=== PATIENT | male | born 1950 | race Caucasian/White ===

== ENCOUNTER → 2017-01-16 | Outpatient (CLI) | payer OTHER ==
[~2017-01-16] MED LIST: AMLO-110 PO; ASPI81TA28 PO; AZIT500T26 PO; BIOFTAB30 PO; BUSP1TAB46 PO; MECL1TAB42 PO; METH5TAB63 PO; RANI300T2 PO
[2017-01-16 12:17] LABS: BASO % 0.3 %; BASO ABS # 0.02 K/uL (0-0.2); COMPLETE YES; EOS % 1.9 %; HEMATOCRIT 46.4 % (42-52); IG% 0.2 %; LYMPH % 39.2 %; LYMPH ABS # 2.28 K/uL (1.2-3.4); MEAN CELL VOLUME 96.5 fL (80-100); MEAN CORPUSCULAR HEMOGLOBIN 32.8 pg (25-34); MEAN CORPUSCULAR HGB CONC 34.1 g/dl (32-36); MEAN PLATELET VOLUME 10.1 fL (7.4-10.4); MONO % 8.6 %; NEUT % 49.8 %; PLATELET COUNT 330 K/uL (130-400); RED BLOOD COUNT 4.81 M/uL (4.7-6.1); WHITE BLOOD COUNT 5.81 K/uL (4.8-10.8)
[2017-01-16 12:36] LABS: ALT/SGPT 23 U/L (12-78); AST/SGOT 19 U/L (15-37); BLOOD UREA NITROGEN 13 mg/dl (7-18); BUN/CREATININE RATIO 11.1 (10-20); CARBON DIOXIDE 26 mmol/L (21-32); CHLORIDE 108 mmol/L (98-107); CHOLESTEROL 210 mg/dl (0-200); GLUCOSE 100 mg/dl (70-99); POTASSIUM 4.6 mmol/L (3.5-5.1); SODIUM 141 mmol/L (136-145); TRIGLYCERIDES 116 mg/dl (0-150); VERY LOW DENSITY LIPOPROT CALC 23 mg/dl
[2017-01-16 12:38] LABS: CALCIUM 8.9 mg/dl (8.5-10.1)
[2017-01-16 12:47] LABS: ALKALINE PHOSPHATASE 85 U/L (45-117); CHOLESTEROL/HDL RATIO 4.5; HDL CHOLESTEROL 47 mg/dl; LDL CHOLESTEROL CALCULATED 140 mg/dl
== END | disposition home or self-care (01) ==
LOC: C.LABBFT 08:03
PROVIDERS: ATTEND Internal Medicine
DX: Z11.59 Encounter for screening for other viral diseases (principal); E05.90 Thyrotoxicosis, unspecified without thyrotoxic crisis or storm; E78.5 Hyperlipidemia, unspecified; I10 Essential (primary) hypertension

== ENCOUNTER 2017-06-22 23:27 | Emergency (ER) | payer OTHER ==
[~2017-06-22] VITALS: Ht 170.2 cm; Wt 85.4 kg
[~2017-06-22 23:27] MED LIST changes: -AMLO-110 PO; -AZIT500T26 PO; -MECL1TAB42 PO
[2017-06-22 23:32] VITALS: TEMP 36.6; Ht 170.2 cm; Wt 85.4 kg
[2017-06-22 23:48] VITALS: O2SAT 97
--- NOTE | 2017-06-22 23:54 | EMERGENCY ROOM VISIT NOTE ---
History Report prepared by Jessi: Chandrakant Ascencio Under the Supervision of: Dr. Kimmy Gann D.O. First contact with patient: 23:35 Chief Complaint: CHEST PAIN Stated Complaint: CHEST PAIN,NOT FEELING WELL Nursing Triage Summary: pt reports cp started at 2230 in L chest feels sob and nauseated History of Present Illness The patient is a 66 year old male who presents to the Emergency Room with complaints of mild chest pain that occurred this evening. Currently, his pain has resolved. Although this pain occurred this evening, he states that it is not a new experience. He has been having small mild episodes of this same pain for about 3 weeks. He has been battling a cough with post nasal drip for the past four weeks. After trying cold medicine and Mucinex, he notes that the mucous became harder to cough up. While he was sitting down watching TV this evening, he started to feel "weird" and began to have this mild chest pain. He then began to shake with chills as well. His chest pain went away after about 30 seconds. He went to bed but could not stop shaking. He was going to go to his PCP for his cold symptoms, but the shakiness concerned him, so he presented to the ER. He has a past medical history hypertension, GERD, and thyroid disease. He denies any abdominal pain, melena, hematochezia, diarrhea, or abnormal urinary symptoms. He notes that he is following up with Cardiology, but everything that was done has been negative. He smokes 9 cigarettes everyday. Source of History: patient Onset: this evening Position: chest Symptom Intensity: minimal Quality: ache Timing: resolved Associated Symptoms: + cough, No abdominal pain, No melena, No hematochezia , No diarrhea, No urinary symptoms Note: He was experiencing shakiness. Review of Systems See HPI for pertinent positives & negatives. A total of 10 systems reviewed and were otherwise negative. Past Medical & Surgical Medical Problems: (1) Benign hypertension (2) Gastroesophageal reflux disease (3) Herniated disc (4) Hypothyroidism (5) Vertigo Family History Cancer Diabetes mellitus Gallbladder disease Heart disease Hypertension Social History Smoking Status: Current Every Day Smoker Alcohol Use: occasionally Marital Status: Housing Status: lives with family Occupation Status: employed Current/Historical Medications Scheduled Amlodipine (Norvasc), 5 MG PO DAILY Aspirin (Aspirin Ec), 81 MG PO DAILY Azithromycin (Zithromax), 500 MG PO DAILY Methimazole (Tapazole), 5 MG PO DAILY Ranitidine (Zantac), 300 MG PO BID Scheduled PRN Buspirone Hcl (Buspirone Hcl), 7.5 MCG PO BID PRN for Anxiety Meclizine Hcl (Meclizine Hcl), 25 MG PO TID PRN for Dizziness or Vertigo Allergies Coded Allergies: RANDALL Inhibitors (Verified Allergy, Intermediate, ANGIOEDEMA, 06/23/17) Ezetimibe (Verified Adverse Reaction, Unknown, intolerance, 05/29/15) HMG-CoA-R Inhibitors (Verified Adverse Reaction, Unknown, intolerance, ) Physical Exam Vital Signs Date Time Temp Pulse Resp B/P (MAP) Pulse Ox O2 Delivery O2 Flow Rate FiO2 06/23/17 04:07 74 16 147/95 93 Room Air 06/23/17 02:36 70 16 127/85 95 Room Air 06/23/17 00:59 77 15 137/75 93 Room Air 06/22/17 23:59 85 06/22/17 23:48 97 Room Air 06/22/17 23:42 94 Room Air 06/22/17 23:32 36.6 92 20 178/104 96 Room Air Physical Exam HEENT: Head - normocephalic and atraumatic Pupils are equal, round, and reactive to light. Extraocular eye muscles are intact, and sclera are anicteric. Nose - moist nasal mucosa without discharge. Mouth - moist buccal mucosa. Oropharynx is nonerythematous and there is no tonsillar exudate or edema noted. Neck: Supple; no JVD, nuchal rigidity, cervical lymphadenopathy, or auscultated bruits. Heart: Regular rate and rhythm. There is a normal S1 and S2 with no murmurs, clicks, or gallops appreciated. Lungs: Diminished lungs sounds in all mckeon. No wheezing or rales appreciated. Abdomen: Soft, completely nontender, nondistended, with good bowel sounds. There are no palpable pulsatile masses or hepatosplenomegaly. There is no guarding, rigidity, or rebound noted. Extremities: No evidence of cyanosis, clubbing, or edema. There are easily palpable peripheral pulses. Skin: warm and dry with good turgor and no rashes. Medical Decision & Procedures ER Provider Diagnostic Interpretation: Radiology results as stated below per my review and the radiologist's interpretation: CHEST X-RAY 1 VIEW: Normal mediastinum. No pulmonary pathology. Per me Laboratory Results 06/22/17 23:45 Red Blood Count 4.77, Mean Corpuscular Volume 93.5, Mean Corpuscular Hemoglobin 32.9, Mean Corpuscular Hemoglobin Concent 35.2, Mean Platelet Volume 9.6, Neutrophils (%) (Auto) 51.0, Lymphocytes (%) (Auto) 38.1, Monocytes (%) (Auto) 7.4, Eosinophils (%) (Auto) 2.8, Basophils (%) (Auto) 0.3, Neutrophils # (Auto) 3.96, Lymphocytes # (Auto) 2.95, Monocytes # (Auto) 0.57, Eosinophils # (Auto) 0.22, Basophils # (Auto) 0.02 06/22/17 23:45 Test 06/22/17 23:45 06/22/17 23:53 06/23/17 01:05 06/23/17 03:46 White Blood Count 7.75 K/uL (4.8-10.8) Red Blood Count 4.77 M/uL (4.7-6.1) Hemoglobin 15.7 g/dL (14.0-18.0) Hematocrit 44.6 % (42-52) Mean Corpuscular Volume 93.5 fL (80-100) Mean Corpuscular Hemoglobin 32.9 pg (25-34) Mean Corpuscular Hemoglobin Concent 35.2 g/dl (32-36) Platelet Count 320 K/uL (130-400) Mean Platelet Volume 9.6 fL (7.4-10.4) Neutrophils (%) (Auto) 51.0 % Lymphocytes (%) (Auto) 38.1 % Monocytes (%) (Auto) 7.4 % Eosinophils (%) (Auto) 2.8 % Basophils (%) (Auto) 0.3 % Neutrophils # (Auto) 3.96 K/uL (1.4-6.5) Lymphocytes # (Auto) 2.95 K/uL (1.2-3.4) Monocytes # (Auto) 0.57 K/uL (0.11-0.59) Eosinophils # (Auto) 0.22 K/uL (0-0.5) Basophils # (Auto) 0.02 K/uL (0-0.2) RDW Standard Deviation 45.4 fL (36.4-46.3) RDW Coefficient of Variation 13.2 % (11.5-14.5) Immature Granulocyte % (Auto) 0.4 % Immature Granulocyte # (Auto) 0.03 K/uL (0.00-0.02) Prothrombin Time 10.0 SECONDS (9.0-12.0) Prothromb Time International Ratio 0.9 (0.9-1.1) Activated Partial Thromboplast Time 26.3 SECONDS (21.0-31.0) Partial Thromboplastin Ratio 1.0 Anion Gap 7.0 mmol/L (3-11) Est Creatinine Clear Calc Drug Dose 67.5 ml/min Estimated GFR () 77.8 Estimated GFR (Non- 67.1 BUN/Creatinine Ratio 12.1 (10-20) Calcium Level 8.3 mg/dl (8.5-10.1) Total Bilirubin 0.2 mg/dl (0.2-1) Aspartate Amino Transf (AST/SGOT) 17 U/L (15-37) Alanine Aminotransferase (ALT/SGPT) 28 U/L (12-78) Alkaline Phosphatase 93 U/L (45-117) Total Protein 7.6 gm/dl (6.4-8.2) Albumin 3.5 gm/dl (3.4-5.0) Globulin 4.1 gm/dl (2.5-4.0) Albumin/Globulin Ratio 0.9 (0.9-2) Chemistry Specimen Hemolysis Bedside Lactic Acid Venous 1.63 mmol/L (0.90-1.70) Urine Color YELLOW Urine Appearance CLEAR (CLEAR) Urine pH 5.5 (4.5-7.5) Urine Specific [place] 1.012 (1.000-1.030) Urine Protein NEG (NEG) Urine Glucose (UA) NEG (NEG) Urine Ketones NEG (NEG) Urine Occult Blood NEG (NEG) Urine Nitrite NEG (NEG) Urine Bilirubin NEG (NEG) Urine Urobilinogen NEG (NEG) Urine Leukocyte Esterase NEG (NEG) Urine WBC (Auto) 0 /hpf (0-5) Urine RBC (Auto) 0-4 /hpf (0-4) Urine Hyaline Casts (Auto) 0 /lpf (0-5) Urine Epithelial Cells (Auto) 0-5 /lpf (0-5) Urine Bacteria (Auto) NEG (NEG) Bedside Troponin I < 0.030 ng/ml (0-0.045) Laboratory results per my review. Medications Administered Medications (Trade) Dose Ordered Sig/Lyudmila Route Start Time Stop Time Status Last Admin Dose Admin Azithromycin (Zithromax Tab) 500 mg NOW STAT PO 06/23/17 03:43 06/23/17 03:44 DC 06/23/17 04:06 500 MG Procedure Azithromycin 500 mg PO ECG Indication: chest pain Rate (beats per minute): 83 Rhythm: normal sinus Findings: no acute ischemic change, no ectopy ED Course 2335: Past medical records reviewed. The patient was evaluated in room A3. A complete history and physical exam was performed. A septic protocol was performed as the patient describes some shaking and I thought this may be related to chills. The patient had a twelve-lead EKG and chest x-ray as described above. 0240: The patient's blood pressure has normalized. 0336: I reassessed the patient at this time. I will be getting a POC troponin. He notes that he is feeling well. 0343: Ordered Azithromycin 500 mg PO 0400: The patient's troponin is 0.0. I reassessed him at this time and updated him on his results. He will be discharged home. 0415: Upon reevaluation, the patient is resting. I discussed findings and results with him. He verbalized agreement of the treatment plan. He was discharged home. Medical Decision The patient is a 66 year old male who presents to the ED with resolved chest pain and shaking. Differential diagnosis includes sepsis, pneumonia, acute coronary syndrome, STEMI, and bronchitis. Laboratory Results: Normal White Blood Cell count, normal H&H, lactic 1.6, glucose 166, normal renal function, normal LFTs, normal coagulation studies, normal urine. The patient describes having some upper respiratory symptoms, cough and intermittent episodes of chest pain over the past 3 weeks. He became more concerned tonight because he developed some shaking. By his description of his symptoms, I was concerned about the productive cough and the possibility of shaking chills. A septic protocol was performed. The patient was afebrile and had a normal lactic acid. He had no significant leukocytosis. We spent some time talking about his episodes of chest pain. He states that they'll last for a couple of seconds and then resolved. He has had a significant workup by his PCP in the past for episodes of dizziness that included a cardiac stress test and echo. The patient is a smoker and does have a productive cough at this time. I will start the patient on oral antibiotics as the cough has been worsening over the past 3 weeks. I've asked patient to follow up with his PCP with regards to the episodes of chest pain if they persist. If symptoms worsen, he should return here to the ER. Medication Reconcilliation Current Medication List: was personally reviewed by me Blood Pressure Screening Patient's blood pressure: Normal blood pressure Blood pressure disposition: Did not require urgent referral Impression Primary Impression: Cough Additional Impression: Midsternal chest pain Scribe Attestation The scribe's documentation has been prepared under my direction and personally reviewed by me in its entirety. I confirm that the note above accurately reflects all work, treatment, procedures, and medical decision making performed by me. Departure Information Dispostion Home / Self-Care Prescriptions Azithromycin (Zithromax) 500 Mg Tab 500 MG PO DAILY, #4 TAB Prov: Kimmy Gann D.O. 06/23/17 Referrals Gerardo Zhou M.D. (PCP) Forms Call Back Authorization, HOME CARE DOCUMENTATION FORM, IMPORTANT VISIT INFORMATION Patient Instructions Bronchitis Acute, ED Chest Pain Atypical Unkn Cause, My [facility] Additional Instructions Rest. Limit strenuous activity Take zithromax as directed. follow up with PCP if episodes of chest pain continue. Return here if cheat pain happens and doesn't subside Problem Qualifiers
[2017-06-23 00:01] LABS: BASO % 0.3 %; BASO ABS # 0.02 K/uL (0-0.2); COMPLETE YES; EOS % 2.8 %; HEMATOCRIT 44.6 % (42-52); IG% 0.4 %; LYMPH % 38.1 %; LYMPH ABS # 2.95 K/uL (1.2-3.4); MEAN CELL VOLUME 93.5 fL (80-100); MEAN CORPUSCULAR HEMOGLOBIN 32.9 pg (25-34); MEAN CORPUSCULAR HGB CONC 35.2 g/dl (32-36); MEAN PLATELET VOLUME 9.6 fL (7.4-10.4); MONO % 7.4 %; PLATELET COUNT 320 K/uL (130-400); RED BLOOD COUNT 4.77 M/uL (4.7-6.1); WHITE BLOOD COUNT 7.75 K/uL (4.8-10.8)
[2017-06-23 00:16] LABS: INR 0.9 (0.9-1.1)
[2017-06-23 00:24] LABS: ALB/GLOB RATIO 0.9 (0.9-2); BUN/CREATININE RATIO 12.1 (10-20); CALCIUM 8.3 mg/dl (8.5-10.1); CREATININE 1.14 mg/dl (0.60-1.40); POTASSIUM 3.8 mmol/L (3.5-5.1)
[2017-06-23] MEDS ORDERED: AMLO-110 PO (00:59)
[2017-06-23] MEDS ORDERED: MECL1TAB42 PO (01:01)
[2017-06-23 01:21] LABS: URINE APPEARANCE CLEAR (CLEAR); URINE BILIRUBIN NEG (NEG); URINE COLOR YELLOW; URINE EPITHELIAL CELL AUTO 0-5 /lpf (0-5); URINE NITRITE NEG (NEG); URINE PH 5.5 (4.5-7.5); URINE SPECIFIC GRAVITY 1.012 (1.000-1.030); UROBILINOGEN NEG (NEG); ZZUR CULT IF INDIC CLEAN CATCH NO
[2017-06-23 01:23] LABS: MANUAL MICROSCOPIC REQUIRED? NO; REVIEW REQ? NO
[2017-06-23] MEDS ORDERED: AZITHROMYCIN 250 MG TAB PO STA (03:43)
[2017-06-23 04:07] VITALS: BP 147/95; PULSE 74; O2SAT 93
[2017-06-23] MEDS ORDERED: AZIT500T26 PO (04:09)
--- NOTE | 2017-06-23 06:05 | DIAGNOSTIC IMAGING REPORT ---
CHEST 2 VIEWS ROUTINE CLINICAL HISTORY: 67 years-old Male presenting with cough. TECHNIQUE: PA and lateral views of the chest were obtained. COMPARISON: 05/29/2015. FINDINGS: Cardiomediastinal silhouette normal. Lungs and pleural spaces clear. Osteopenia may be present. Osseous structures otherwise normal. Upper abdomen normal. IMPRESSION: 1. No acute cardiopulmonary disease. Electronically signed by: Good Avila M.D. 06/23/2017 6:03 AM Dictated Date/Time: 06/23/2017 6:02 AM
== END 2017-06-23 04:16 | disposition home or self-care (01) ==
LOC: C.EDB 23:28 → C.EDA 06-23 04:16
DX: R07.2 Precordial pain (principal); R05 Cough; I10 Essential (primary) hypertension; K21.9 Gastro-esophageal reflux disease without esophagitis; E03.9 Hypothyroidism, unspecified; F17.200 Nicotine dependence, unspecified, uncomplicated; Z79.82 Long term (current) use of aspirin; Z79.899 Other long term (current) drug therapy; Z80.9 Family history of malignant neoplasm, unspecified; Z83.3 Family history of diabetes mellitus; Z83.79 Family history of other diseases of the digestive system; Z82.49 Family history of ischemic heart disease and other diseases of the circulatory system; Z88.8 Allergy status to other drugs, medicaments and biological substances

== ENCOUNTER → 2017-06-28 | Outpatient (CLI) | payer OTHER ==
[~2017-06-28] MED LIST changes: +AMLO-110 PO; +AZIT500T26 PO; -BIOFTAB30 PO; +MECL1TAB42 PO
[2017-06-28 13:32] LABS: LYME DISEASE AB IGG NEG (NEG); LYME DISEASE AB IGM NEG (NEG)
== END | disposition home or self-care (01) ==
LOC: C.LABBFT 10:32
PROVIDERS: ATTEND Nurse Practitioner
DX: E05.90 Thyrotoxicosis, unspecified without thyrotoxic crisis or storm (principal); R53.81 Other malaise

== ENCOUNTER → 2017-07-24 | Outpatient (CLI) | payer OTHER ==
[2017-07-24 12:18] LABS: BASO % 0.3 %; BASO ABS # 0.02 K/uL (0-0.2); COMPLETE YES; EOS % 1.7 %; HEMATOCRIT 47.5 % (42-52); IG% 0.2 %; LYMPH % 37.7 %; MEAN CELL VOLUME 97.1 fL (80-100); MEAN CORPUSCULAR HEMOGLOBIN 32.9 pg (25-34); MEAN CORPUSCULAR HGB CONC 33.9 g/dl (32-36); MEAN PLATELET VOLUME 10.1 fL (7.4-10.4); MONO % 8.5 %; NEUT % 51.6 %; PLATELET COUNT 366 K/uL (130-400); RED BLOOD COUNT 4.89 M/uL (4.7-6.1); WHITE BLOOD COUNT 6.36 K/uL (4.8-10.8)
[2017-07-24 12:22] LABS: ESTIMATED AVERAGE GLUCOSE 123 mg/dl; HA1C FLAG Normal (Normal)
[2017-07-24 12:30] LABS: ALB/GLOB RATIO 0.8 (0.9-2); ALT/SGPT 22 U/L (12-78); AST/SGOT 15 U/L (15-37); BLOOD UREA NITROGEN 13 mg/dl (7-18); BUN/CREATININE RATIO 12.6 (10-20); CARBON DIOXIDE 26 mmol/L (21-32); CHLORIDE 105 mmol/L (98-107); CREATININE 1.05 mg/dl (0.60-1.40); GLUCOSE 97 mg/dl (70-99); POTASSIUM 4.4 mmol/L (3.5-5.1); SODIUM 136 mmol/L (136-145)
[2017-07-24 12:35] LABS: ALKALINE PHOSPHATASE 87 U/L (45-117); CHOLESTEROL 194 mg/dl (0-200); HDL CHOLESTEROL 49 mg/dl; LDL CHOLESTEROL CALCULATED 109 mg/dl; TRIGLYCERIDES 179 mg/dl (0-150); VERY LOW DENSITY LIPOPROT CALC 36 mg/dl
== END | disposition home or self-care (01) ==
LOC: C.LABBFT 08:07
PROVIDERS: ATTEND Internal Medicine
DX: Z12.5 Encounter for screening for malignant neoplasm of prostate (principal); R73.01 Impaired fasting glucose; I10 Essential (primary) hypertension

== ENCOUNTER → 2017-08-15 | Outpatient (CLI) | payer OTHER ==
[~2017-08-15] MED LIST changes: -AMLO-110 PO; +AMLO5TAB3 PO; +ATV5X PO; +AZITTAB PO; +BSP/10 PO; +LORA0.5T12 PO; +METH-848 PO; +NRV/5 PO; +PRED50TA PO; +RANI300T PO; +VBRT100 PO
--- NOTE | 2017-08-15 07:25 | DIAGNOSTIC IMAGING REPORT ---
ULTRASOUND EXAM AAA SCREEN CLINICAL HISTORY: F17.200 Current every day smoker, aneurysm screening COMPARISON STUDY: No previous studies for comparison. FINDINGS: There is no evidence of abdominal aortic aneurysm. The proximal abdominal aorta measures 2.8 cm in diameter, the mid aorta 2 cm in diameter, the distal aorta 2 cm in diameter. Each iliac measures 1 cm in diameter. IMPRESSION: No evidence of abdominal aortic aneurysm. Electronically signed by: Christo Haynes M.D. 08/15/2017 7:23 AM Dictated Date/Time: 08/15/2017 7:22 AM
== END | disposition home or self-care (01) ==
LOC: C.ULTR 06:42
PROVIDERS: ATTEND Internal Medicine
DX: F17.200 Nicotine dependence, unspecified, uncomplicated (principal)

== ENCOUNTER 2017-09-07 17:29 | Emergency (ER) | payer OTHER ==
[~2017-09-07] VITALS: Ht 170.2 cm; Wt 85.0 kg
[~2017-09-07 17:29] MED LIST changes: +AMLO-110 PO; -AMLO5TAB3 PO; -ATV5X PO; -AZITTAB PO; -BSP/10 PO; -LORA0.5T12 PO; -METH-848 PO; -NRV/5 PO; -PRED50TA PO; -RANI300T PO; -VBRT100 PO
[2017-09-07 17:36] VITALS: TEMP 36.5; Ht 170.2 cm; Wt 85.0 kg
[2017-09-07] MEDS ORDERED: ASPIRIN 81 MG CHEW PO STA (18:57)
--- NOTE | 2017-09-07 19:11 | EMERGENCY ROOM VISIT NOTE ---
History Report prepared by Jessi: Emeli Thompson Under the Supervision of: Dr. Errol Geller M.D. First contact with patient: 18:45 Chief Complaint: CHEST PAIN Stated Complaint: CHEST PAIN, NECK PAIN, BACK PAIN Nursing Triage Summary: Patient had a fever, chills aches and was seen by PCP did a flu swab and it was negative. Started with chest pain today pain radiates to neck and shoulder. History of Present Illness The patient is a 67 year old male who presents to the Emergency Room with complaints of an constant chest heaviness which radiated into his neck beginning this afternoon. He denies any shortness of breath, nausea, vomiting, diarrhea, blood in his stool, or blood in his urine. The patient denies any syncope. The patient was seen by his PCP this afternoon for increased fatigues beginning 5 days ago. At his PCPs office he has a flu swab which was negative. He was put on doxycycline, 100 mg, and reports taking one dose this afternoon. The patient denies any recent travel, surgeries, exogenous hormone usage, history of thromboembolic events, or trauma. The patient has a history of hypertension and GERD Source of History: patient Onset: this afternoon Position: chest Quality: other (radiates to neck) Timing: constant Associated Symptoms: + neck pain, + chest pain, No SOB, No nausea, No vomiting, No diarrhea, No urinary symptoms Review of Systems See HPI for pertinent positives and negatives. A total of ten systems were reviewed and were otherwise negative. Past Medical & Surgical Medical Problems: (1) Benign hypertension (2) Gastroesophageal reflux disease (3) Herniated disc (4) Hypothyroidism (5) Vertigo Family History Cancer Diabetes mellitus Gallbladder disease Heart disease Hypertension Social History Smoking Status: Never Smoker Alcohol Use: occasionally Marital Status: Housing Status: lives with family Occupation Status: employed Current/Historical Medications Scheduled Amlodipine (Norvasc), 5 MG PO DAILY Aspirin (Aspirin Ec), 81 MG PO DAILY Doxycycline Hyclate (Doxycycline Hyclate), 100 MG PO BID Methimazole (Tapazole), 5 MG PO DAILY Ranitidine (Zantac), 300 MG PO BID Scheduled PRN Buspirone Hcl (Buspirone Hcl), 7.5 MCG PO BID PRN for Anxiety Lorazepam (Lorazepam), 0.5 MG PO DAILY PRN for Anxiety Meclizine Hcl (Meclizine Hcl), 25 MG PO TID PRN for Dizziness or Vertigo Allergies Coded Allergies: RANDALL Inhibitors (Verified Allergy, Intermediate, ANGIOEDEMA, 06/23/17) Ezetimibe (Verified Adverse Reaction, Unknown, intolerance, 05/29/15) HMG-CoA-R Inhibitors (Verified Adverse Reaction, Unknown, intolerance, ) Physical Exam Vital Signs Date Time Temp Pulse Resp B/P (MAP) Pulse Ox O2 Delivery O2 Flow Rate FiO2 09/07/17 22:24 67 16 146/89 94 Room Air 09/07/17 19:47 74 09/07/17 19:39 97 Room Air 09/07/17 17:39 Room Air 09/07/17 17:36 36.5 90 16 166/89 96 Room Air Physical Exam Physical Exam GENERAL: He is oriented to person, place, and time. He appears well-developed and well-nourished. He does not appear distressed. ____ HENT: Exam performed. Head: Normocephalic and atraumatic. Right Ear: External ear normal. No mastoid tenderness. Left Ear: External ear normal. No mastoid tenderness. Mouth/Throat: The oropharynx is clear and moist. No trismus in the jaw. No dental abscesses or uvula swelling. No oropharyngeal exudate or tonsillar abscesses. ____ EYES: Conjunctivae and EOM are normal. Pupils are equal, round, and reactive to light. Right eye exhibits no discharge. Left eye exhibits no discharge. No scleral icterus. ____ NECK: Normal range of motion. Neck supple. No JVD present. No spinous process tenderness present. No carotid bruit present. No rigidity. No tracheal deviation and normal range of motion present. No Brudzinski's sign and no Kernig 's sign noted. ____ CV: Normal rate, regular rhythm, normal heart sounds and intact distal pulses. There is no peripheral edema. Palpable radial pulses bue. ____ PULM/CHEST: Effort normal and breath sounds normal. No respiratory distress. No stridor. He has no wheezes. He has no rales. Chest Wall: He exhibits no tenderness. ____ ABD: The abdomen is soft. Bowel sounds are normal. He has no distension. No mass is present. There is no tenderness. There is no rebound, no guarding, no Rudolph's sign and no tenderness at McBurney's point. Rovsig negative MUSC/SKEL: Normal range of motion. There is no peripheral edema, tenderness or deformity. LYMPH: No cervical adenopathy. ____ NEURO: He is alert and oriented to person, place, and time. He has normal strength. No cranial nerve deficit or sensory deficit. Coordination and gait normal. GCS eye subscore is 4. GCS verbal subscore is 5. GCS motor subscore is 6. cerbellar tests wnl. ____ SKIN: Skin is warm and dry. He is not diaphoretic. ____ PSYCH: He has a normal mood and affect. His behavior is normal. Judgment and thought content normal. ____ Medical Decision & Procedures ER Provider Diagnostic Interpretation: Radiology results as stated below per my review and radiologist interpretation: CHEST 2 VIEWS ROUTINE FINDINGS: The lungs are clear. Cardiac silhouette is normal in size. No pleural effusions. No pneumothorax. IMPRESSION: No acute process. Electronically signed by: Momo Jacobs M.D. Laboratory Results 09/07/17 19:07 Red Blood Count 5.03, Mean Corpuscular Volume 93.8, Mean Corpuscular Hemoglobin 33.8, Mean Corpuscular Hemoglobin Concent 36.0, Mean Platelet Volume 9.5, Neutrophils (%) (Auto) 70.1, Lymphocytes (%) (Auto) 21.5, Monocytes (%) (Auto) 7.3, Eosinophils (%) (Auto) 0.7, Basophils (%) (Auto) 0.2, Neutrophils # (Auto) 5.65, Lymphocytes # (Auto) 1.74, Monocytes # (Auto) 0.59, Eosinophils # (Auto) 0.06, Basophils # (Auto) 0.02 09/07/17 19:07 Test 09/07/17 19:07 09/07/17 22:17 White Blood Count 8.08 K/uL (4.8-10.8) Red Blood Count 5.03 M/uL (4.7-6.1) Hemoglobin 17.0 g/dL (14.0-18.0) Hematocrit 47.2 % (42-52) Mean Corpuscular Volume 93.8 fL (80-100) Mean Corpuscular Hemoglobin 33.8 pg (25-34) Mean Corpuscular Hemoglobin Concent 36.0 g/dl (32-36) Platelet Count 325 K/uL (130-400) Mean Platelet Volume 9.5 fL (7.4-10.4) Neutrophils (%) (Auto) 70.1 % Lymphocytes (%) (Auto) 21.5 % Monocytes (%) (Auto) 7.3 % Eosinophils (%) (Auto) 0.7 % Basophils (%) (Auto) 0.2 % Neutrophils # (Auto) 5.65 K/uL (1.4-6.5) Lymphocytes # (Auto) 1.74 K/uL (1.2-3.4) Monocytes # (Auto) 0.59 K/uL (0.11-0.59) Eosinophils # (Auto) 0.06 K/uL (0-0.5) Basophils # (Auto) 0.02 K/uL (0-0.2) RDW Standard Deviation 44.3 fL (36.4-46.3) RDW Coefficient of Variation 12.9 % (11.5-14.5) Immature Granulocyte % (Auto) 0.2 % Immature Granulocyte # (Auto) 0.02 K/uL (0.00-0.02) Anion Gap 5.0 mmol/L (3-11) Est Creatinine Clear Calc Drug Dose 75.0 ml/min Estimated GFR () 89.4 Estimated GFR (Non- 77.1 BUN/Creatinine Ratio 12.0 (10-20) Calcium Level 8.6 mg/dl (8.5-10.1) Troponin I 0.018 ng/ml (0-0.045) Laboratory results reviewed by me Medications Administered Medications (Trade) Dose Ordered Sig/Lyudmila Route Start Time Stop Time Status Last Admin Dose Admin Aspirin (Aspirin Chew) 324 mg NOW STAT PO 09/07/17 18:57 09/07/17 19:00 DC 09/07/17 19:06 324 MG ECG Indication: chest pain Rate (beats per minute): 82 Rhythm: sinus rhythm Findings: no acute ischemic change, no ectopy, other (CT, QRS, QTC within normal limits, No ST elevation or depression) Change: EKG interpreted by me. ED Course 601: The patient was evaluated in room C12B. A complete history and physical exam was performed. 1856: Ordered Aspirin 324 mg PO. 2119: Vital sign stable. EMR reviewed: patient had a stress echo in 2013 and an echo in 2014. He has had no cardiac workup since. The patient was given the option to come into the hospital for chest pain rule ACS. He does not want to stay in the hospital overnight. Repeat troponin if not upward trending, the patient will follow up with Dr. NavarreteCardiology. Patient is agreeable to plan. 6: Vital signs stable. Second troponin within normal limits. Patient was again offered observation for rule out ACS however he declined. Patient will be discharged follow-up with his PCP Dr. Etienne on Sunday. DISCHARGE - Plan of care discussed with patient and questions answered. The patient was given both verbal and printed discharge instructions. The patient verbalized understanding and ability to comply. The patient is to seek outpatient follow up as noted in the discharge instructions. The patient verbalized understanding and ability to comply. The patient is discharged in stable condition. The patient was instructed to return for worsening symptoms. Medical Decision 2119: Vital sign stable. EMR reviewed: patient had a stress echo in 2013 and an echo in 2014. He has had no cardiac workup since. The patient was given the option to come into the hospital for chest pain rule ACS. He does not want to stay in the hospital overnight. Repeat troponin if not upward trending, the patient will follow up with Dr. NavarreteCardiology. Patient is agreeable to plan. 6: Vital signs stable. Second troponin within normal limits. Patient was again offered observation for rule out ACS however he declined. Patient will be discharged follow-up with his PCP Dr. Etienne on Sunday. DISCHARGE - Plan of care discussed with patient and questions answered. The patient was given both verbal and printed discharge instructions. The patient verbalized understanding and ability to comply. The patient is to seek outpatient follow up as noted in the discharge instructions. The patient verbalized understanding and ability to comply. The patient is discharged in stable condition. The patient was instructed to return for worsening symptoms. Medication Reconcilliation Current Medication List: was personally reviewed by me Impression Primary Impression: CHEST PAIN, UNSPECIFIED Scribe Attestation The scribe's documentation has been prepared under my direction and personally reviewed by me in its entirety. I confirm that the note above accurately reflects all work, treatment, procedures, and medical decision making performed by me. The chart was completed utilizing [employer] Speech voice recognition software. Grammatical errors, random word insertions, pronoun errors, and incomplete sentences are an occasional consequence of this system due to software limitations, ambient noise, and hardware issues. Any formal questions or concerns about the content, text, or information contained within the body of this dictation should be directly addressed to the physician for clarification. Departure Information Referrals Gerardo Zhou M.D. (PCP) Patient Instructions My [facility]
[2017-09-07] MEDS ORDERED: VBRT100 PO (19:14)
[2017-09-07] MEDS ORDERED: LORA0.5T12 PO (19:16)
[2017-09-07 19:23] LABS: BASO % 0.2 %; BASO ABS # 0.02 K/uL (0-0.2); EOS % 0.7 %; EOS ABS # 0.06 K/uL (0-0.5); HEMATOCRIT 47.2 % (42-52); IG# 0.02 K/uL (0.00-0.02); LYMPH % 21.5 %; LYMPH ABS # 1.74 K/uL (1.2-3.4); MEAN CELL VOLUME 93.8 fL (80-100); MEAN CORPUSCULAR HEMOGLOBIN 33.8 pg (25-34); MEAN PLATELET VOLUME 9.5 fL (7.4-10.4); MONO % 7.3 %; MONO ABS # 0.59 K/uL (0.11-0.59); NEUT % 70.1 %; NEUT ABS # 5.65 K/uL (1.4-6.5); PLATELET COUNT 325 K/uL (130-400); RED CELL DISTRIBUTION WIDTH CV 12.9 % (11.5-14.5); RED CELL DISTRIBUTION WIDTH SD 44.3 fL (36.4-46.3); WHITE BLOOD COUNT 8.08 K/uL (4.8-10.8)
[2017-09-07 19:39] VITALS: O2SAT 97
[2017-09-07 19:48] LABS: CALCIUM 8.6 mg/dl (8.5-10.1); CREATININE 1.01 mg/dl (0.60-1.40); POTASSIUM 3.8 mmol/L (3.5-5.1)
--- NOTE | 2017-09-07 20:51 | DIAGNOSTIC IMAGING REPORT ---
CHEST 2 VIEWS ROUTINE HISTORY: Atypical chest pain. COMPARISON: Chest 06/23/2017. FINDINGS: The lungs are clear. Cardiac silhouette is normal in size. No pleural effusions. No pneumothorax. IMPRESSION: No acute process. Electronically signed by: Momo Jacobs M.D. 09/07/2017 8:50 PM Dictated Date/Time: 09/07/2017 8:48 PM
[2017-09-07 23:25] VITALS: BP 162/95; PULSE 78; O2SAT 94
== END 2017-09-07 23:26 | disposition home or self-care (01) ==
LOC: C.EDB 17:32 → C.EDC 23:26
DX: R07.9 Chest pain, unspecified (principal); M54.2 Cervicalgia; I10 Essential (primary) hypertension; E03.9 Hypothyroidism, unspecified; K21.9 Gastro-esophageal reflux disease without esophagitis; M54.9 Dorsalgia, unspecified

== ENCOUNTER → 2017-09-12 | Outpatient (CLI) | payer OTHER ==
[~2017-09-12] MED LIST changes: -AZIT500T26 PO; +LORA0.5T12 PO; +VBRT100 PO
== END | disposition home or self-care (01) ==
LOC: C.LABBFT 11:29
PROVIDERS: ATTEND Internal Medicine
DX: E05.90 Thyrotoxicosis, unspecified without thyrotoxic crisis or storm (principal)

== ENCOUNTER 2017-09-24 14:27 | Emergency (ER) | payer OTHER ==
[~2017-09-24] VITALS: Ht 170.2 cm; Wt 85.6 kg
[2017-09-24] MEDS ORDERED: ACETAMINOPHEN 500 MG TAB PO STA (15:11)
[2017-09-24] MEDS ORDERED: ALBUT/IPRATROP 3MG/0.5MG NEB 3 ML VIAL INH STA (15:11)
--- NOTE | 2017-09-24 15:12 | EMERGENCY ROOM VISIT NOTE ---
History Report prepared by Jessi: Chandrakant Ascencio Under the Supervision of: Dr. Kingston Ramsay M.D. First contact with patient: 14:53 Chief Complaint: COUGH Stated Complaint: COUGH,NOT FEELING WELL History of Present Illness The patient is a 67 year old white male with a past medical history of hypertension and GERD who presents to the ED with a cc of a dry cough beginning three days ago. Positive subjective hypothermic temperature of 95 F, a "scratchy " throat, and some fatigue. Negative sore throat, chest pain, shortness of breath, nausea, vomiting, or abdominal pain. He has been experiencing this cough for the past couple of days. However, he took his oral temperature today and found it to be 95 F. He then had his take hers to make sure the thermometer was working, and her temperature was normal. He called his PCP who referred him to the ER because of their office being closed today. He does smoke cigarettes, but is trying to cut back. He notes he received three different courses of antibiotics over the past month or so with the most recent being about two weeks ago. Source of History: patient Onset: three days ago Position: other (Respiratory System) Symptom Intensity: moderate Quality: other (Cough) Timing: constant Associated Symptoms: + fatigue, No sorethroat, No chest pain, No SOB, No nausea, No vomiting, No abdominal pain Note: He states that his temperature was low at 95 F. His throat is irritated but not sore. Review of Systems See HPI for pertinent positives and negatives. A total of ten systems were reviewed and were otherwise negative. Past Medical & Surgical Medical Problems: (1) Benign hypertension (2) Gastroesophageal reflux disease (3) Herniated disc (4) Hypothyroidism (5) Vertigo Family History Cancer Diabetes mellitus Gallbladder disease Heart disease Hypertension Social History Smoking Status: Current Every Day Smoker Alcohol Use: occasionally Marital Status: Housing Status: lives with family Occupation Status: retired Current/Historical Medications Scheduled Amlodipine Besylate (Amlodipine Besylate), 5 MG PO DAILY Aspirin (Aspirin Ec), 81 MG PO DAILY Azithromycin (Zithromax Z-Duane), 1 PKT PO UD Buspirone HCl (Buspirone HCl), 10 MG PO BID Methimazole (Methimazole), 5 MG PO DAILY Prednisone (Prednisone), 1 TAB PO DAILY Ranitidine Hcl (Zantac), 300 MG PO BID Scheduled PRN Lorazepam (Lorazepam), 0.5 MG PO DAILY PRN for Anxiety Allergies Coded Allergies: RANDALL Inhibitors (Verified Allergy, Intermediate, ANGIOEDEMA, 06/23/17) Ezetimibe (Verified Adverse Reaction, Unknown, intolerance, 05/29/15) HMG-CoA-R Inhibitors (Verified Adverse Reaction, Unknown, intolerance, ) Physical Exam Vital Signs Date Time Temp Pulse Resp B/P (MAP) Pulse Ox O2 Delivery O2 Flow Rate FiO2 09/24/17 17:16 87 18 124/73 95 Room Air 09/24/17 16:26 72 09/24/17 16:13 36.4 72 18 95 Room Air 09/24/17 15:37 95 Room Air 09/24/17 15:33 98 Room Air 09/24/17 14:40 36.4 83 20 166/107 95 Room Air Physical Exam GENERAL: Awake, alert, well-appearing, NAD HENT: Normocephalic, atraumatic. EYES: Normal conjunctiva. Sclera non-icteric. NECK: Supple. No nuchal rigidity. FROM. No stridor. RESPIRATORY: CTAB, no rhonchi, wheezing, crackles CARDIAC: RRR, no MRG ABDOMEN: Soft, NTND, BS+ MSK: No chest wall TTP, no LE edema NEURO: GCS 15, CN 2-12 intact, moves all 4s on command SKIN: No rash or jaundice noted. Medical Decision & Procedures ER Provider Diagnostic Interpretation: Radiology results as stated below per my review and radiologist interpretation: CHEST ONE VIEW PORTABLE CLINICAL HISTORY: 67 years-old Male presenting with EVALUATE RESPIRATORY DISTRESS.DYSPNEA. TECHNIQUE: Portable upright AP view of the chest was obtained. COMPARISON: 09/07/2017. FINDINGS: Cardiomediastinal silhouette normal. Minimal left basilar linear opacity. No other focal opacity. No large effusion or pneumothorax. Osseous structures normal. Upper abdomen normal. IMPRESSION: 1. Trace left basilar atelectasis or scarring. No convincing evidence of acute cardiopulmonary disease. Electronically signed by: Good Avila M.D. 09/24/2017 3:33 PM Dictated Date/Time: 09/24/2017 3:32 PM Laboratory Results 09/24/17 15:30 Red Blood Count 4.67, Mean Corpuscular Volume 94.2, Mean Corpuscular Hemoglobin 33.2, Mean Corpuscular Hemoglobin Concent 35.2, Mean Platelet Volume 9.4, Neutrophils (%) (Auto) 51.5, Lymphocytes (%) (Auto) 36.5, Monocytes (%) (Auto) 10.1, Eosinophils (%) (Auto) 1.2, Basophils (%) (Auto) 0.7, Neutrophils # (Auto ) 2.15, Lymphocytes # (Auto) 1.52, Monocytes # (Auto) 0.42, Eosinophils # (Auto ) 0.05, Basophils # (Auto) 0.03 09/24/17 15:30 Test 09/24/17 15:30 09/24/17 15:42 White Blood Count 4.17 K/uL (4.8-10.8) Red Blood Count 4.67 M/uL (4.7-6.1) Hemoglobin 15.5 g/dL (14.0-18.0) Hematocrit 44.0 % (42-52) Mean Corpuscular Volume 94.2 fL (80-100) Mean Corpuscular Hemoglobin 33.2 pg (25-34) Mean Corpuscular Hemoglobin Concent 35.2 g/dl (32-36) Platelet Count 275 K/uL (130-400) Mean Platelet Volume 9.4 fL (7.4-10.4) Neutrophils (%) (Auto) 51.5 % Lymphocytes (%) (Auto) 36.5 % Monocytes (%) (Auto) 10.1 % Eosinophils (%) (Auto) 1.2 % Basophils (%) (Auto) 0.7 % Neutrophils # (Auto) 2.15 K/uL (1.4-6.5) Lymphocytes # (Auto) 1.52 K/uL (1.2-3.4) Monocytes # (Auto) 0.42 K/uL (0.11-0.59) Eosinophils # (Auto) 0.05 K/uL (0-0.5) Basophils # (Auto) 0.03 K/uL (0-0.2) RDW Standard Deviation 45.3 fL (36.4-46.3) RDW Coefficient of Variation 13.1 % (11.5-14.5) Immature Granulocyte % (Auto) 0.0 % Immature Granulocyte # (Auto) 0.00 K/uL (0.00-0.02) Prothrombin Time 9.9 SECONDS (9.0-12.0) Prothromb Time International Ratio 0.9 (0.9-1.1) Activated Partial Thromboplast Time 24.7 SECONDS (21.0-31.0) Partial Thromboplastin Ratio 1.0 Anion Gap 5.0 mmol/L (3-11) Est Creatinine Clear Calc Drug Dose 69.7 ml/min Estimated GFR () 81.5 Estimated GFR (Non- 70.4 BUN/Creatinine Ratio 10.8 (10-20) Calcium Level 8.6 mg/dl (8.5-10.1) Troponin I 0.016 ng/ml (0-0.045) Pro-B-Type Natriuretic Peptide 37 pg/ml (0-900) Urine Color YELLOW Urine Appearance CLEAR (CLEAR) Urine pH 7.5 (4.5-7.5) Urine Specific [place] 1.009 (1.000-1.030) Urine Protein NEG (NEG) Urine Glucose (UA) NEG (NEG) Urine Ketones NEG (NEG) Urine Occult Blood NEG (NEG) Urine Nitrite NEG (NEG) Urine Bilirubin NEG (NEG) Urine Urobilinogen NEG (NEG) Urine Leukocyte Esterase NEG (NEG) Laboratory results reviewed by me Medications Administered Medications (Trade) Dose Ordered Sig/Lyudmila Route Start Time Stop Time Status Last Admin Dose Admin Acetaminophen (Tylenol Tab) 1,000 mg NOW STAT PO 09/24/17 15:11 09/24/17 15:14 DC 09/24/17 15:39 1,000 MG Albuterol/ Ipratropium (Duoneb) 3 ml NOW STAT INH 09/24/17 15:11 09/24/17 15:14 DC 09/24/17 15:40 3 ML Dexamethasone Sodium Phosphate (Dexamethasone Inj Pf) 10 mg NOW ONCE IV 09/24/17 15:15 09/24/17 15:16 DC 09/24/17 15:39 10 MG ECG Indication: weakness Rate (beats per minute): 71 Rhythm: normal sinus Findings: other (Normal intervals, normal axis, likely benign early repolarization, some t-wave flattening in aVL, no other STS changes or TWI) Change: Patient's electrocardiogram interpreted by me. ED Course 1453: The patient was evaluated in room C7. A complete history and physical exam was performed. 3561: Upon reevaluation, the patient is doing well. 1704: Review of the patient's past records showed that he started a course of Doxycycline on September 07 and completed it. 1725: I reevaluated the patient. Discussed results and discharge instructions: He verbalized understanding and agreement. The patient is ready for discharge. Medical Decision The patient is a 67 year old white male with a past medical history of hypertension and GERD who presents to the ED with a cc of a dry cough beginning three days ago. Positive subjective hypothermic temperature of 95 F, a "scratchy " throat, and fatigue. Negative sore throat, chest pain, shortness of breath, nausea, vomiting, or abdominal pain. Differential diagnosis: Etiologies such as infections, reactive airway disease, pneumonia, pneumothorax , COPD, CHF, cardiac ischemia, pulmonary embolism, musculoskeletal, gastrointestinal, as well as others were entertained. Patient was seen and evaluated at the bedside. Patient has had some persistent cough and ongoing for some time although acutely worse over the last several days. Patient notes a decreased oral temperature home and called his PCP and was referred here. She will exam will sounds as if he has a group sounding cough. Patient was given dexamethasone did have blood work completed along with an EKG and troponin. Patient's blood work was fairly unremarkable patient had a clear chest x-ray. Patient is a noted smoker patient states he has switched of the pain however we did discuss that he needs to cut back and eventually quit. Patient is feeling improved after his treatments. Patient was given recommendations as well as TIPS for smoking cessation. Patient records were obtained from his most previous to clinic a he was placed on doxycycline. We'll try azithromycin for atypical coverage for chronic bronchitis. Patient was deemed suitable for outpatient follow-up and treatment at this time. Patient was given strict follow-up, discharge, and return precautions. All questions were answered. Patient was deemed suitable for outpatient follow-up at this time. Patient agreed with the plan of care and was safely discharged home. Medication Reconcilliation Current Medication List: was personally reviewed by me Blood Pressure Screening Patient's blood pressure: Elevated blood pressure Blood pressure disposition: Elevated BP felt to be situational Impression Primary Impression: Cough Additional Impressions: Chronic bronchitis Encounter for smoking cessation counseling Scribe Attestation The scribe's documentation has been prepared under my direction and personally reviewed by me in its entirety. I confirm that the note above accurately reflects all work, treatment, procedures, and medical decision making performed by me. Departure Information Dispostion Home / Self-Care Prescriptions Prednisone (Prednisone) 50 Mg Tab 1 TAB PO DAILY for 3 Days, #3 TAB Please take first dose on 09/26. Take with food, preferably in the morning. Prov: Kingston Ramsay M.D. 09/24/17 Azithromycin (ZITHROMAX Z-DUANE) 250 Mg Tab 1 PKT PO UD for 5 Days, #6 TAB Prov: Kingston Ramsay M.D. 09/24/17 Referrals Gerardo Zhou M.D. (PCP) Forms HOME CARE DOCUMENTATION FORM, IMPORTANT VISIT INFORMATION Patient Instructions Bronchitis Chronic, ED Smoking Cessation, [facility] Additional Instructions Please return to the emergency department if you have worsening or recurrent symptoms not amenable to at-home treatment. Please call for a follow-up appointment with her primary care physician. Please take your medications as prescribed. If you have other concerns and/or complaints please feel free to also call your primary care physician's office or return the ED for further evaluation, management, and treatment. You may take 600 mg Ibuprofen every 6 hours as needed for pain with food for no more than 2 consecutive days. You may take tylenol 1000 mg every 6 hours as needed for pain. You may take motrin and tylenol separately or at the same time. Please take your steroids in the morning and preferably with food. Do not take your first dose of the steroid until September 26. Please consider smoking cessation. Take your medications as prescribed. If taking an antibiotic consider taking a probiotic and/or eating yogurt, but at the least, please take with food as it can cause upset stomach. If culture results are not available at discharge, if they are positive for concern of infection, you will be informed of the results as soon as they are available. If you were seen between 11pm and 7AM all radiology reads will be re-read by our in house staff. If any major discrepancies are discovered, you will be notified. You have been examined and treated today on an emergency basis only. This is not a substitute for, or an effort to provide, complete comprehensive medical care. It is impossible to recognize and treat all injuries or illnesses in a single emergency department visit. It is therefore important that you follow up closely with [facility], your PCP, and/or your specialist(s). Call as soon as possible for an appointment. Thank you for your time and consideration. I look forward to speaking with you again soon. Please don't hesitate to call us if you have any questions. Problem Qualifiers Additional Impressions: Chronic bronchitis Chronic bronchitis type: simple Qualified Codes: J41.0 - Simple chronic bronchitis
[2017-09-24] MEDS ORDERED: DEXAMETHASONE **PF** INJ 10 MG/ML VIAL IV ONE (15:15)
[2017-09-24 15:33] VITALS: O2SAT 98; Ht 170.2 cm; Wt 85.6 kg
--- NOTE | 2017-09-24 15:34 | DIAGNOSTIC IMAGING REPORT ---
CHEST ONE VIEW PORTABLE CLINICAL HISTORY: 67 years-old Male presenting with EVALUATE RESPIRATORY DISTRESS.DYSPNEA. TECHNIQUE: Portable upright AP view of the chest was obtained. COMPARISON: 09/07/2017. FINDINGS: Cardiomediastinal silhouette normal. Minimal left basilar linear opacity. No other focal opacity. No large effusion or pneumothorax. Osseous structures normal. Upper abdomen normal. IMPRESSION: 1. Trace left basilar atelectasis or scarring. No convincing evidence of acute cardiopulmonary disease. Electronically signed by: Good Avila M.D. 09/24/2017 3:33 PM Dictated Date/Time: 09/24/2017 3:32 PM
[2017-09-24 15:44] LABS: BASO % 0.7 %; BASO ABS # 0.03 K/uL (0-0.2); EOS % 1.2 %; EOS ABS # 0.05 K/uL (0-0.5); HEMOGLOBIN 15.5 g/dL (14.0-18.0); LYMPH % 36.5 %; LYMPH ABS # 1.52 K/uL (1.2-3.4); MEAN CELL VOLUME 94.2 fL (80-100); MEAN CORPUSCULAR HEMOGLOBIN 33.2 pg (25-34); MEAN CORPUSCULAR HGB CONC 35.2 g/dl (32-36); MEAN PLATELET VOLUME 9.4 fL (7.4-10.4); MONO % 10.1 %; MONO ABS # 0.42 K/uL (0.11-0.59); NEUT % 51.5 %; NEUT ABS # 2.15 K/uL (1.4-6.5); PLATELET COUNT 275 K/uL (130-400); RED CELL DISTRIBUTION WIDTH CV 13.1 % (11.5-14.5); RED CELL DISTRIBUTION WIDTH SD 45.3 fL (36.4-46.3); WHITE BLOOD COUNT 4.17 K/uL (4.8-10.8)
[2017-09-24 15:57] LABS: INR 0.9 (0.9-1.1); PTT PATIENT 24.7 SECONDS (21.0-31.0)
[2017-09-24 16:04] LABS: CALCIUM 8.6 mg/dl (8.5-10.1); CREATININE 1.09 mg/dl (0.60-1.40); POTASSIUM 4.2 mmol/L (3.5-5.1)
[2017-09-24 16:13] VITALS: TEMP 36.4
[2017-09-24] MEDS ORDERED: RANI300T PO (16:23)
[2017-09-24] MEDS ORDERED: BSP/10 PO (16:23)
[2017-09-24] MEDS ORDERED: NRV/5 PO (16:23)
[2017-09-24] MEDS ORDERED: METH-848 PO (16:23)
[2017-09-24] MEDS ORDERED: ATV5X PO (16:23)
[2017-09-24] MEDS ORDERED: PRED50TA PO (17:15)
[2017-09-24] MEDS ORDERED: AZITTAB PO (17:15)
[2017-09-24 17:16] VITALS: BP 124/73; PULSE 87; O2SAT 95
== END 2017-09-24 17:28 | disposition home or self-care (01) ==
LOC: C.EDB 14:28 → C.EDC 17:28
DX: J41.0 Simple chronic bronchitis (principal); Z71.6 Tobacco abuse counseling; F17.210 Nicotine dependence, cigarettes, uncomplicated; I10 Essential (primary) hypertension; K21.9 Gastro-esophageal reflux disease without esophagitis; E03.9 Hypothyroidism, unspecified; Z79.82 Long term (current) use of aspirin; Z88.8 Allergy status to other drugs, medicaments and biological substances; Z80.9 Family history of malignant neoplasm, unspecified; Z83.3 Family history of diabetes mellitus; Z83.79 Family history of other diseases of the digestive system; Z82.49 Family history of ischemic heart disease and other diseases of the circulatory system

== ENCOUNTER → 2017-11-12 | Outpatient (CLI) | payer OTHER ==
[~2017-11-12] MED LIST changes: -AMLO-110 PO; +ATV5X PO; +BSP/10 PO; -BUSP1TAB46 PO; -LORA0.5T12 PO; -MECL1TAB42 PO; +METH-848 PO; -METH5TAB63 PO; +NRV/5 PO; +RANI300T PO; -RANI300T2 PO; -VBRT100 PO
== END | disposition home or self-care (01) ==
LOC: C.LABBFT 15:22
PROVIDERS: ATTEND Internal Medicine
DX: R97.20 Elevated prostate specific antigen [PSA] (principal)

== ENCOUNTER 2025-03-22 19:00 | Inpatient (IN) ==
[2025-03-22 19:48] LABS: Alanine Aminotransferase 17 U/L (7-52); Albumin Globulin Ratio 1.2 (0.9-2); Alkaline Phosphatase 65 U/L (34-104); Anion Gap 6 (3-11); Bilirubin,Total 0.4 mg/dl (0.2-1.0); Blood Urea Nitrogen 14 mg/dl (6-23); Calcium 9.2 mg/dl (8.6-10.3); Carbon Dioxide 26 mmol/L (21-32); Chloride 105 mmol/L (98-107); Creatinine Clr Calc Pharmacy 58.9 ml/min; Globulin 3.6 gm/dl (2.5-4.0); Glucose 93 mg/dl (70-99(Fasting)); Magnesium 2.0 mg/dl (1.7-2.4); Sodium 137 mmol/L (136-145); Total Protein 7.9 gm/dl (6.0-8.3)
[2025-03-22 19:52] LABS: Procalcitonin < 0.02 ng/ml (0-0.5)
[2025-03-22 19:58] LABS: Hematocrit (blood only) 44.6 % (42.0-52.0); Hemoglobin 15.8 g/dl (14.0-18.0); Mean Corpuscular Hemoglobin 32.4 pg (25.0-34.0); Mean Corpuscular Volume 91.4 fL (80.0-100.0); Platelet Count 293 K/uL (130-400); RDW Standard Deviation 42.7 fL (36.4-46.3); Red Blood Count 4.88 M/uL (4.70-6.10); White Blood Count 5.88 K/ul (4.8-10.8)
[2025-03-22 20:03] LABS: Immature Granulocytes # (auto) 0.03 K/uL (0.01-0.20); Immature Granulocytes % (auto) 0.5 %
[2025-03-22 20:11] LABS: Appearance Urine Clear (Clear); Glucose Urine UA Negative (Negative)
[2025-03-22 20:12] LABS: Thyroid Stimulating Hormone 1.399 uIu/ml (0.300-4.500)
[2025-03-22 20:18] LABS: Lyme Screen Rflx Confirmation Negative (Negative)
--- NOTE | 2025-03-22 20:21 | Emergency Department Note ---
Impression & Plan Confusion, Elevated troponin ED Provider Note Provider: Chandana Welch MD CHIEF COMPLAINT: Confusion HISTORY OF PRESENT ILLNESS: Patient is a 74-year-old gentleman past medical history of hypertension presenting here today via ambulance from home. Patient evidently over the last 4 days according to patient's has been fibula more off balance and having some headache. She notes this evening around 5 PM that he seemed much more forgetful and was having trouble using the Vikas lift to help her at home. Normally he is doing this activity without issue. Normally takes care of her medications. He states he feels maybe a little confused but denies any pain. No falls are reported. Patient denies numbness or tingling or shortness of breath or fever. Denies abdominal pain. Patient does have some repetitive questioning and even after explanation was shortly thereafter asked questions again. Thinks that states fall and does not know the year or month. reports has had some on and off headache but again he denies this now. PAST MEDICAL HISTORY: As noted above MEDICATIONS: Reviewed home medications SOCIAL HISTORY: Resides at home with PHYSICAL EXAM: GENERAL: alert and oriented to person in no acute distress on stretcher but not the best historian Head: normocephalic and atraumatic EYES: No injection, discharge or icterus. PERRL, EOMI. NECK: Trachea midline. Supple. ENT: Mucous membranes pink and moist. LUNGS: Airway patent. No retractions. Breath sounds clear with out significant wheeze HEART: Regular rate and rhythm. No chest wall tenderness ABDOMEN: Soft and non-tender, without guarding or rebound. SKIN: Acyanotic, warm, dry, without rashes EXTREMITIES: Without swelling, tenderness or deformity NEUROLOGICAL: No focal deficits moving all extremities. No aphasia. No facial droop or slurred speech. Normal strength and tone in the extremities. Sensation to gross touch normal. Ambulatory. EK beats. Normal sinus rhythm. No PVC or PAC. No acute ST segment elevation or depression with QTc of 442. CONTINUOUS CARDIAC MONITORING: was ordered and showed a heart rate of 70s to 80s bpm in normal sinus rhythm Patient's laboratory studies and imaging reviewed. Differential includes Infection, dehydration, metabolic abnormality, hypo/hyperglycemia, electrolyte disturbance, anemia, hypoxia, cardiac sources, intracerebral event, toxicologic, neurologic, as well as other pathologies. IMPRESSION/MEDICAL DECISION MAKING: Patient does not appear meningitic. Vitals reassuring other than some hypertension and noted to have some mild hypoxia in the high 80s. Patient reports distant history of smoking. Does not seem wheezy on exam. No leukocytosis or anemia. No significant lecture abnormality. No signs of significant renal dysfunction. Troponin is mildly elevated 42 but no baseline. Not reporting chest pain. EKG was completed. Procalcitonin undetectably low and TSH is normal. Negative urinalysis. Negative anaplasmosis/babesiosis. Negative Lyme screen. Will complete a CT of the chest to exclude PE or pneumonia and in addition to a CT of the head CT angiogram of the head neck will be obtained to look for any possible stroke or intracranial abnormality. CT head and CTA of the chest without significant acute findings of intracranial bleed or evidence of PE. CT angiogram of the neck and head were without significant reported abnormality. Patient on the phone with his but still somewhat confabulating. Not responding to external stimuli does not seem to be hallucinating. Did review office note from November 20 with [employer] [facility] forward and patient does have a history of some depression and anxiety but no notes they are indicative of dementia or memory impairment seen. Given this change will bring in for further evaluation here. Hospitalist was contacted. Ordered a dose of aspirin here. DIAGNOSIS: Confusion, elevated troponin DISPOSITION: Hospitalist will evaluate Patient was agreeable with this plan. Past Med/Surg History Problem List (Updated 03/22/25 @ 20:48 by Chandana Welch M.D.) Elevated troponin (Acute) Confusion (Acute) Hypertension (Chronic) Hyperlipidemia Blurry vision, bilateral Amaurosis fugax of right eye Wheezing Screening for malignant neoplasm of prostate Gynecomastia GERD without esophagitis (Acute) Acid reflux Intermittent abdominal pain Hyperthyroidism (Chronic) Personal history of nicotine dependence Memory impairment Impaired fasting glucose (Chronic) Weight loss, unintentional Anxiety (Acute) Medical History Anxiety Hypertension Hyperthyroidism Vertigo (2014) Surgical History History of colonoscopy (01/07/20) History of esophagogastroduodenoscopy (EGD) (01/07/20) History of left cataract surgery History of right cataract surgery Family History Mother Pancreatic cancer Father Alzheimer disease Sister Depression Unknown Bone cancer Brother Coronary heart disease Melanoma Grandfather (Maternal) Myocardial infarction Other Family history non-contributory Denies family history of Ovarian cancer Prostate cancer Breast cancer Colorectal cancer Social History Smoking Status: Never smoker Tobacco Type: Cigarettes Age Started Using Tobacco: 14; Age Quit Using Tobacco: 68; packs per day: 1.5; Cigarettes Per Day: 10-30; Second Hand Exposure: No; Do You Dip or Chew Tobacco: No; Hx Alcohol Use: No Hx Substance Use: No Preferred Language: Finnish Communication Ability: Effective Visual Impairment: No Limitations Hearing Ability: Normal marital status: Current Living Situation: Spouse current occupational status: retired current occupation: worked as business intelligence administrator for [employer] Feels Safe at Home: Yes Childhood Exposure to Second-Hand Smoke: No Diet: regular Dental Care, Regularly: No Physical Activity Frequency: Daily Seatbelt Use: always Sunscreen Use: No Allergies Allergies Allergy/AdvReac Type Severity Reaction Status Date / Time RANDALL Inhibitors Allergy Intermediate ANGIOEDEMA Verified 05/12/21 14:30 gabapentin Allergy Intermediate off balance Verified 05/12/21 14:30 sertraline Allergy Intermediate Abdominal Verified 05/12/21 14:30 Pain venlafaxine [From Effexor] Allergy Intermediate Abdominal Verified 05/12/21 14:30 Pain, chest pain ezetimibe AdvReac Mild intolerance Verified 05/12/21 14:30 HMG-CoA-R Inhibitors AdvReac Mild intolerance Uncoded 05/12/21 14:30 Home Meds Home Medications Medication Instructions Recorded Confirmed magnesium 250 mg tablet 250 mg PO QPM 05/04/19 03/22/25 mirtazapine 15 mg tablet (Remeron) 15 mg PO HS 09/22/19 03/22/25 lorazepam 1 mg tablet 1 mg PO BID PRN Anxiety 02/02/20 03/22/25 aspirin 81 mg tablet,delayed 81 mg PO Q OTHER DAY 12/14/20 03/22/25 release (Adult Aspirin Regimen) Lactobacillus 1 cap PO DAILY 03/22/25 03/22/25 acidophilus-Bifidobac.animalis 2.5 billion cell capsule (Daily Probiotic) albuterol sulfate 90 mcg/actuation 2 puff inhalation Q6H PRN Wheezing 03/22/25 03/22/25 aerosol inhaler amlodipine 10 mg tablet 10 mg PO QAM 03/22/25 03/22/25 calcium 500 mg (as citrate)-vit D3 1 tab PO DAILY 03/22/25 03/22/25 10 mcg (400 unit) chewable tablet cyanocobalamin (vitamin B-12) 500 500 mcg PO Q OTHER DAY 03/22/25 03/22/25 mcg tablet (Vitamin B-12) rosuvastatin 5 mg tablet 5 mg PO 2XWK 03/22/25 03/22/25 Previous Rx's Medication Instructions Recorded methimazole 5 mg tablet 5 mg PO DAILY #90 tabs 08/16/20 pantoprazole 40 mg tablet,delayed 40 mg PO QAM #90 tabs 01/31/21 release Results & Data (ED) Vital Signs Vital Signs - 24 hr 03/22/25 19:04 03/22/25 19:04 03/22/25 19:07 Temperature 36.6 C Temperature Source Temporal Artery Scan Pulse Rate 72 72 Respiratory Rate 20 Respiratory Effort / Characteristics Non-Labored Spontaneous Respiratory Depth Normal Respiratory Pattern Regular Blood Pressure 172/97 H Blood Pressure Mean 122 Pulse Oximetry 89 L 89 L Oxygen Delivery Method Room Air Room Air Oxygen Flow Rate Sepsis Recent Fever Within 48 Hours No Sepsis New/Unexplained Change in Mental Status Yes Sepsis Action Taken by Nursing No Action Required Oxygen Flow Rate - Titration 2 Pulse Oximetry Post Tiitration 95 03/22/25 19:26 03/22/25 20:30 03/22/25 21:30 Temperature Temperature Source Pulse Rate 76 74 Respiratory Rate 18 24 Respiratory Effort / Characteristics Respiratory Depth Respiratory Pattern Blood Pressure 160/96 H 150/93 H Blood Pressure Mean 97 111 Pulse Oximetry 95 93 95 Oxygen Delivery Method Nasal Cannula Nasal Cannula Nasal Cannula Oxygen Flow Rate 2 2 2 Sepsis Recent Fever Within 48 Hours Sepsis New/Unexplained Change in Mental Status Sepsis Action Taken by Nursing Oxygen Flow Rate - Titration Pulse Oximetry Post Tiitration 03/22/25 22:00 Temperature Temperature Source Pulse Rate 72 Respiratory Rate 20 Respiratory Effort / Characteristics Respiratory Depth Respiratory Pattern Blood Pressure 155/96 H Blood Pressure Mean 123 Pulse Oximetry 94 Oxygen Delivery Method Nasal Cannula Oxygen Flow Rate 2 Sepsis Recent Fever Within 48 Hours Sepsis New/Unexplained Change in Mental Status Sepsis Action Taken by Nursing Oxygen Flow Rate - Titration Pulse Oximetry Post Tiitration Laboratory Data 03/22/25 19:13 03/22/25 19:56 Lab Results 03/22/25 03/22/25 03/22/25 Range/Units 19:13 19:56 20:02 WBC 5.88 (4.8-10.8) K/ul RBC 4.88 (4.70-6.10) M/uL Hgb 15.8 (14.0-18.0) g/dl Hct 44.6 (42.0-52.0) % MCV 91.4 (80.0-100.0) fL MCH 32.4 (25.0-34.0) pg MCHC 35.4 (32.0-36.0) g/dL RDW Std Deviation 42.7 (36.4-46.3) fL RDW Coeff of Michael 12.8 (11.5-14.5) % Plt Count 293 (130-400) K/uL MPV 10.3 (9.4-12.4) fL Immature Gran % (Auto) 0.5 % Neut % (Auto) 68.9 % Lymph % (Auto) 20.6 % [place] % (Auto) 8.3 % Eos % (Auto) 1.4 % Baso % (Auto) 0.3 % Neut # (Auto) 4.05 (1.40-6.50) K/uL Lymph # (Auto) 1.21 (1.20-3.40) K/uL [place] # (Auto) 0.49 (0.11-0.59) K/uL Eos # (Auto) 0.08 (0.00-0.50) K/uL Baso # (Auto) 0.02 (0.00-0.20) K/uL Immature Gran # (Auto) 0.03 (0.01-0.20) K/uL PT Cancelled INR Cancelled Sodium 137 (136-145) mmol/L Potassium TNP 4.2 Chloride 105 (98-107) mmol/L Carbon Dioxide 26 (21-32) mmol/L Anion Gap 6 (3-11) BUN 14 (6-23) mg/dl Creatinine 1.17 (0.6-1.4) mg/dl Est Cr Clr Drug Dosing 58.9 ml/min eGFR 65.82 BUN/Creatinine Ratio 12.0 (10-20) Glucose 93 (70-99(Fasting)) mg/dl Calcium 9.2 (8.6-10.3) mg/dl Magnesium 2.0 (1.7-2.4) mg/dl Total Bilirubin 0.4 (0.2-1.0) mg/dl AST TNP 20 ALT 17 (7-52) U/L Alkaline Phosphatase 65 (34-104) U/L Troponin I High Sens 42.2 H (0-20) pg/ml Total Protein 7.9 (6.0-8.3) gm/dl Albumin 4.3 (3.4-5.0) gm/dl Globulin 3.6 (2.5-4.0) gm/dl Albumin/Globulin Ratio 1.2 (0.9-2) Procalcitonin < 0.02 (0-0.5) ng/ml TSH 1.399 (0.300-4.500) uIu/ml Urine Color Yellow Urine Appearance Clear (Clear) Urine pH 7.0 (4.5-7.5) Ur Specific Mason 1.009 (1.000-1.030) Urine Protein Negative (Negative) Urine Glucose (UA) Negative (Negative) Urine Ketones Negative (Negative) Urine Blood Negative (Negative) Urine Nitrite Negative (Negative) Urine Bilirubin Negative (Negative) Urine Urobilinogen Negative (Negative) Ur Leukocyte Esterase Negative (Negative) Urine Comment Anaplasma Smear See Comment Babesia Smear See Comment Lyme Disease Screen Negative (Negative) SARS-CoV-2 (PCR) (Negative) Influenza Type A (PCR) (Neg) Influenza Type B (PCR) (Neg) RSV (RT-PCR) (Neg) 03/22/25 03/22/25 03/22/25 Range/Units 20:16 20:28 21:04 WBC (4.8-10.8) K/ul RBC (4.70-6.10) M/uL Hgb (14.0-18.0) g/dl Hct (42.0-52.0) % MCV (80.0-100.0) fL MCH (25.0-34.0) pg MCHC (32.0-36.0) g/dL RDW Std Deviation (36.4-46.3) fL RDW Coeff of Michael (11.5-14.5) % Plt Count (130-400) K/uL MPV (9.4-12.4) fL Immature Gran % (Auto) % Neut % (Auto) % Lymph % (Auto) % [place] % (Auto) % Eos % (Auto) % Baso % (Auto) % Neut # (Auto) (1.40-6.50) K/uL Lymph # (Auto) (1.20-3.40) K/uL [place] # (Auto) (0.11-0.59) K/uL Eos # (Auto) (0.00-0.50) K/uL Baso # (Auto) (0.00-0.20) K/uL Immature Gran # (Auto) (0.01-0.20) K/uL PT 10.3 INR 0.9 Sodium (136-145) mmol/L Potassium Chloride (98-107) mmol/L Carbon Dioxide (21-32) mmol/L Anion Gap (3-11) BUN (6-23) mg/dl Creatinine (0.6-1.4) mg/dl Est Cr Clr Drug Dosing ml/min eGFR BUN/Creatinine Ratio (10-20) Glucose (70-99(Fasting)) mg/dl Calcium (8.6-10.3) mg/dl Magnesium (1.7-2.4) mg/dl Total Bilirubin (0.2-1.0) mg/dl AST ALT (7-52) U/L Alkaline Phosphatase (34-104) U/L Troponin I High Sens 41.4 H (0-20) pg/ml Total Protein (6.0-8.3) gm/dl Albumin (3.4-5.0) gm/dl Globulin (2.5-4.0) gm/dl Albumin/Globulin Ratio (0.9-2) Procalcitonin (0-0.5) ng/ml TSH (0.300-4.500) uIu/ml Urine Color Urine Appearance (Clear) Urine pH (4.5-7.5) Ur Specific Mason (1.000-1.030) Urine Protein (Negative) Urine Glucose (UA) (Negative) Urine Ketones (Negative) Urine Blood (Negative) Urine Nitrite (Negative) Urine Bilirubin (Negative) Urine Urobilinogen (Negative) Ur Leukocyte Esterase (Negative) Urine Comment Anaplasma Smear Babesia Smear Lyme Disease Screen (Negative) SARS-CoV-2 (PCR) NEGATIVE (Negative) Influenza Type A (PCR) Negative (Neg) Influenza Type B (PCR) Negative (Neg) RSV (RT-PCR) Negative (Neg) Administered Medications Discontinued Medications Ioversol (Optiray 320 125ml) 115 ml IV ONCE ONE Stop: 03/22/25 20:50 Last Admin: 03/22/25 20:49 Dose: 115 ml Documented By: MISBAH Imaging Data Radiologist's Impression: Chest X-Ray 03/22/25 19:26 Single frontal view of the chest No comparison Impression No acute pulmonary pathology Electronically signed by Ravi Louis 03-22-2025 9:[address] 03/22/25 19:27 EXAM: CT head/brain wo con CLINICAL HISTORY: ams TECHNIQUE: Axial non-contrast CT scan of the brain was performed from the skull base to the high parietal region. One of the following dose reduction techniques were utilized for this exam: Automated exposure control, adjustment of the mA and/or kV according to patient size, use of iterative reconstruction. DLP: 547.7 mGy.cm. COMPARISON: none FINDINGS: Brain Parenchyma: Normal attenuation of the cerebral hemispheres, cerebellum, and brainstem. No evidence of acute infarct, hemorrhage, or mass effect. No abnormal areas of hypo- or hyperattenuation. Mild deep periventricular and subcortical white matter hypodensity suggesting mild chronic small vessel ischemia Ventricular System: Ventricles are prominent No evidence of hydrocephalus or ventricular enlargement. Subarachnoid Spaces: Prominent sulci and cisterns. No evidence of subarachnoid hemorrhage or extra-axial fluid collections. Cerebellum and Brainstem: No masses, lesions, or areas of abnormal density. Orbits: Normal appearance of the globes, optic nerves, and extraocular muscles. No evidence of orbital masses or abnormal density. Sinuses: Clear paranasal sinuses. No evidence of sinusitis or mucosal thickening. Mastoid Air Cells: Clear mastoid air cells. No evidence of mastoiditis. Skull: Normal skull morphology. IMPRESSION: 1. No acute hemorrhagic or ischemic insults 2. Age-matched cerebral involutional changes with mild chronic small vessel ischemia Electronically signed by Chuy Bolden 03-22-2025 9:23 PM Head CTA 03/22/25 20:08 CT angiogram of the head with contrast Technique: Postcontrast axial images of the head. Coronal and sagittal reformatted images made available for review No comparison Findings: No stenosis, dissection, aneurysm, or occlusion. 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 Impression Unremarkable exam. Electronically signed by Ravi Louis 03-22-2025 9:53 PM Neck CTA 03/22/25 20:08 CT angiogram of the neck with contrast Technique: Postcontrast axial images of the neck. Coronal and sagittal reformatted images made available for review . 2D reformatted images made available for review. No comparison Findings: No stenosis, dissection, aneurysm, occlusion identified on this exam. Mild apical predominant bullous emphysematous changes. Bone windows demonstrate no focal abnormality. Multilevel degenerative changes of the cervical spine. Impression: Unremarkable exam. Electronically signed by Ravi Louis 03-22-2025 9:53 PM Chest CTA 03/22/25 20:19 CT angiogram of the chest Technique: Postcontrast axial images of the chest. Coronal and sagittal reformatted images made available for review. 2D MIP images made available for review No comparison Findings: Exam limited secondary to patient respiratory motion. Twice this limitation no large central pulmonary embolus is present on this exam. Linear atelectasis within the left lower lobe. No lobar consolidations or effusions. Heart size and pulmonary vascularity are unremarkable. Limited evaluation of upper abdomen demonstrates no gross abnormality. Bone windows demonstrate no focal abnormality. Impression: Limited exam. No large central pulmonary embolus. Electronically signed by Ravi Louis 03-22-2025 9:44 PM Discharge Plan Visit Data Chief Complaint: Confusion Stated Complaint: Confusion ED Provider: Chandana Welch Discharge Problem: Confusion, Elevated troponin Patient Disposition: Being Evaluated by Hospitalist Condition: Fair Forms Stand Alone Forms: [facility] Prescriptions Prescriptions: No Action methimazole 5 mg tablet 5 mg PO DAILY Qty: 90 3RF pantoprazole 40 mg tablet,delayed release (DR/EC) 40 mg PO QAM Qty: 90 3RF mirtazapine [Remeron] 15 mg tablet 15 mg PO HS aspirin [Adult Aspirin Regimen] 81 mg tablet,delayed release (DR/EC) 81 mg PO Q OTHER DAY magnesium 250 mg Tablet 250 mg PO QPM lorazepam 1 mg tablet 1 mg PO BID PRN (Reason: Anxiety) amlodipine 10 mg tablet 10 mg PO QAM rosuvastatin 5 mg tablet 5 mg PO 2XWK Rx Instructions: take daily on MONDAYS & THURSDAYS calcium citrate-vitamin D3 500 mg-10 mcg (400 unit) Tablet,Chewable 1 tab PO DAILY cyanocobalamin (vitamin B-12) [Vitamin B-12] 500 mcg Tablet 500 mcg PO Q OTHER DAY Rx Instructions: TAKE ON SUNDAYS,TUESDAYS,THURSDAYS,SATURDAYS albuterol sulfate 90 mcg/actuation Hfa Aerosol Inhaler 2 puff INHALATION Q6H PRN (Reason: Wheezing) Daily Probiotic 2.5 billion cell Capsule 1 cap PO DAILY Referrals Referrals: SAMANTHA [Other]
[2025-03-22 20:31] LABS: Potassium 4.2 mmol/L (3.5-5.1)
[2025-03-22] MEDS: OPTIRAY 320 125ml IV ONE (20:49)
[2025-03-22 20:59] LABS: INR 0.9 (0.9-1.1); Prothrombin Time 10.3 Seconds (9.0-12.0)
--- NOTE | 2025-03-22 21:08 | XRay Report ---
Single frontal view of the chest No comparison Impression No acute pulmonary pathology Electronically signed by Ravi Louis 03-22-2025 9:08 PM
[2025-03-22 21:19] LABS: Influenza A virus by PCR Negative (Neg); Influenza B virus by PCR Negative (Neg); SARS CoV2 RNA(COVID-19) Ceph NEGATIVE (Negative)
--- NOTE | 2025-03-22 21:23 | CT Scan Report ---
EXAM: CT head/brain wo con CLINICAL HISTORY: ams TECHNIQUE: Axial non-contrast CT scan of the brain was performed from the skull base to the high parietal region. One of the following dose reduction techniques were utilized for this exam: Automated exposure control, adjustment of the mA and/or kV according to patient size, use of iterative reconstruction. DLP: 547.7 mGy.cm. COMPARISON: none FINDINGS: Brain Parenchyma: Normal attenuation of the cerebral hemispheres, cerebellum, and brainstem. No evidence of acute infarct, hemorrhage, or mass effect. No abnormal areas of hypo- or hyperattenuation. Mild deep periventricular and subcortical white matter hypodensity suggesting mild chronic small vessel ischemia Ventricular System: Ventricles are prominent No evidence of hydrocephalus or ventricular enlargement. Subarachnoid Spaces: Prominent sulci and cisterns. No evidence of subarachnoid hemorrhage or extra-axial fluid collections. Cerebellum and Brainstem: No masses, lesions, or areas of abnormal density. Orbits: Normal appearance of the globes, optic nerves, and extraocular muscles. No evidence of orbital masses or abnormal density. Sinuses: Clear paranasal sinuses. No evidence of sinusitis or mucosal thickening. Mastoid Air Cells: Clear mastoid air cells. No evidence of mastoiditis. Skull: Normal skull morphology. IMPRESSION: 1. No acute hemorrhagic or ischemic insults 2. Age-matched cerebral involutional changes with mild chronic small vessel ischemia Electronically signed by Chuy Bolden 03-22-2025 9:23 PM
--- NOTE | 2025-03-22 21:44 | CT Scan Report ---
CT angiogram of the chest Technique: Postcontrast axial images of the chest. Coronal and sagittal reformatted images made available for review. 2D MIP images made available for review No comparison Findings: Exam limited secondary to patient respiratory motion. Twice this limitation no large central pulmonary embolus is present on this exam. Linear atelectasis within the left lower lobe. No lobar consolidations or effusions. Heart size and pulmonary vascularity are unremarkable. Limited evaluation of upper abdomen demonstrates no gross abnormality. Bone windows demonstrate no focal abnormality. Impression: Limited exam. No large central pulmonary embolus. Electronically signed by Ravi Louis 03-22-2025 9:44 PM
--- NOTE | 2025-03-22 21:53 | CT Scan Report ---
CT angiogram of the head with contrast Technique: Postcontrast axial images of the head. Coronal and sagittal reformatted images made available for review No comparison Findings: No stenosis, dissection, aneurysm, or occlusion. 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 Impression Unremarkable exam. Electronically signed by Ravi Louis 03-22-2025 9:53 PM
--- NOTE | 2025-03-22 21:53 | CT Scan Report ---
CT angiogram of the neck with contrast Technique: Postcontrast axial images of the neck. Coronal and sagittal reformatted images made available for review . 2D reformatted images made available for review. No comparison Findings: No stenosis, dissection, aneurysm, occlusion identified on this exam. Mild apical predominant bullous emphysematous changes. Bone windows demonstrate no focal abnormality. Multilevel degenerative changes of the cervical spine. Impression: Unremarkable exam. Electronically signed by Ravi Louis 03-22-2025 9:53 PM
--- NOTE | 2025-03-22 22:17 | History & Physical Report ---
Date of Service March 22, 2025 Assessment & Plan (1) Encephalopathy: Plan: Assessment and plan below following discussion of case with ED provider and reviewing patient history/pertinent normal/abnormal diagnostic test results. Encephalopathy associated with imbalance Rule out CVA Hypertension, elevated second to above Transient hypoxemia Atelectasis on CT hyperlipidemia, on statin Rx on statin Rx DM2 diet-controlled, well-controlled as of recent hemoglobin A1c of 6.5 last November 2024 hyperthyroidism, patient euthyroid past tobacco abuse Admit to med/tele Neurochecks Continue aspirin for secondary stroke prevention MRI brain Permissive hypertension until stroke ruled out Incentive spirometry Hold lorazepam and Remeron for now given confusion ISS BG goal 110-140, update hemoglobin A1c PT OT eval DVT prophylaxis per Lovenox subcu Full code Patient requesting updates providers. Alexandria Susanne Olsen, contact #[phone]. Text document was generated using [employer] voice recognition software. It may contain grammatical or spelling errors. Kindly contact undersigned for clarification of any documentation item in question. History of Present Illness Chief Complaint: Confusion, imbalance Primary Care Provider: Dr. Haile History obtained from patient, family, and records. Medical history significant for hypertension, hyperlipidemia, DM2 diet- controlled, GERD, hyperthyroidism, anxiety/mood disorder, past tobacco abuse. Patient noted to be off balance the last few days. Patient somewhat confused. Complaining of headache symptoms. Compliant with home meds. Denies chest pain, SOB. No new home medications. SBP 170s upon arrival at the ER. Lowest O2 sats of 80s documented at the ER. Medical History as above Surgical History : Cataract surgeries Family History : Dementia, DM, melanoma, pancreatic cancer, RA Personal/Social history : Past tobacco abuse, occasional EtOH intake, lives with Allergies Allergy/AdvReac Type Severity Reaction Status Date / Time RANDALL Inhibitors Allergy Intermediate ANGIOEDEMA Verified 05/12/21 14:30 gabapentin Allergy Intermediate off balance Verified 05/12/21 14:30 sertraline Allergy Intermediate Abdominal Verified 05/12/21 14:30 Pain venlafaxine [From Effexor] Allergy Intermediate Abdominal Verified 05/12/21 14:30 Pain, chest pain ezetimibe AdvReac Mild intolerance Verified 05/12/21 14:30 [id number] Reductase AdvReac Mild intolerance Verified 03/22/25 22:57 Inhibitor Home Medications Medication Instructions Recorded Confirmed Type magnesium 250 mg tablet 250 mg PO QPM 05/04/19 03/22/25 History mirtazapine 15 mg tablet (Remeron) 15 mg PO HS 09/22/19 03/22/25 History lorazepam 1 mg tablet 1 mg PO BID PRN Anxiety 02/02/20 03/22/25 History methimazole 5 mg tablet 5 mg PO DAILY #90 tabs 08/16/20 03/22/25 Rx aspirin 81 mg tablet,delayed 81 mg PO Q OTHER DAY 12/14/20 03/22/25 History release (Adult Aspirin Regimen) pantoprazole 40 mg tablet,delayed 40 mg PO QAM #90 tabs 01/31/21 03/22/25 Rx release Lactobacillus 1 cap PO DAILY 03/22/25 03/22/25 History acidophilus-Bifidobac.animalis 2.5 billion cell capsule (Daily Probiotic) albuterol sulfate 90 mcg/actuation 2 puff inhalation Q6H PRN Wheezing 03/22/25 03/22/25 History aerosol inhaler amlodipine 10 mg tablet 10 mg PO QAM 03/22/25 03/22/25 History calcium 500 mg (as citrate)-vit D3 1 tab PO DAILY 03/22/25 03/22/25 History 10 mcg (400 unit) chewable tablet cyanocobalamin (vitamin B-12) 500 500 mcg PO Q OTHER DAY 03/22/25 03/22/25 History mcg tablet (Vitamin B-12) rosuvastatin 5 mg tablet 5 mg PO 2XWK 03/22/25 03/22/25 History Past Med/Surg History Problem List (Updated 03/23/25 @ 10:03 by Chirag Ricketts MD) Encephalopathy Elevated troponin (Acute) Confusion (Acute) Hypertension (Chronic) Hyperlipidemia Blurry vision, bilateral Amaurosis fugax of right eye Wheezing Screening for malignant neoplasm of prostate Gynecomastia GERD without esophagitis (Acute) Acid reflux Intermittent abdominal pain Hyperthyroidism (Chronic) Personal history of nicotine dependence Memory impairment Impaired fasting glucose (Chronic) Weight loss, unintentional Anxiety (Acute) Medical History Anxiety Hypertension Hyperthyroidism Vertigo (2014) Surgical History History of colonoscopy (01/07/20) History of esophagogastroduodenoscopy (EGD) (01/07/20) History of left cataract surgery History of right cataract surgery Family History Mother Pancreatic cancer Father Alzheimer disease Sister Depression Unknown Bone cancer Brother Coronary heart disease Melanoma Grandfather (Maternal) Myocardial infarction Other Family history non-contributory Denies family history of Ovarian cancer Prostate cancer Breast cancer Colorectal cancer Social History Smoking Status: Former smoker Tobacco Type: Cigarettes Age Started Using Tobacco: 14; Age Quit Using Tobacco: 68; packs per day: 1.5; Cigarettes Per Day: 10-30; Second Hand Exposure: No; Do You Dip or Chew Tobacco: No; Hx Alcohol Use: No Hx Substance Use: No Preferred Language: Mongolian Communication Ability: Effective Visual Impairment: No Limitations Hearing Ability: Normal Bus Analyst Required: No Beliefs That Will Affect Care: None marital status: Current Living Situation: Spouse current occupational status: retired current occupation: worked as substance abuse specialist for [employer] Other Information That Helps Us Care for You: No Feels Safe at Home: Yes Safety Concerns: Feels Safe At This Time Childhood Exposure to Second-Hand Smoke: No Diet: regular Dental Care, Regularly: No Physical Activity Frequency: Daily Seatbelt Use: always Sunscreen Use: No Assistive Devices: Denture - Upper and Glasses Review of Systems Review of Systems: Could not be reliably obtained secondary to confusion Physical Exam Physical Exam: GENERAL: Oriented to place, comfortable, pleasant, obese, no respiratory distress SKIN: Normal color, warm HEENT: Bespectacled, pink palpebral conjunctivae, no ptosis, dry buccal mucosa NECK : Supple, no tenderness CHEST : CTA, no tenderness HEART : RRR, no obvious murmurs ABDOMEN: Some distention, nontender EXTREMITIES : No LE swelling/tenderness, palpable pulses, no other conspicuous deformities noted NEUROLOGIC : Oriented to place, no facial asymmetry, gait and stance not assessed Results & Data Results & Data Vital Signs (Past 12 Hours) Vital Signs Temp Pulse Resp BP Pulse Ox O2 Del Method O2 Flow Rate 03/22/25 22:00 72 20 155/96 H 94 Nasal Cannula 2 03/22/25 21:30 74 24 150/93 H 95 Nasal Cannula 2 03/22/25 20:30 76 18 160/96 H 93 Nasal Cannula 2 03/22/25 19:26 95 Nasal Cannula 2 03/22/25 19:07 72 03/22/25 19:04 89 L Room Air 03/22/25 19:04 36.6 C 72 20 172/97 H 89 L Room Air Laboratory Results Laboratory Results WBC 5.88 K/ul (4.8-10.8) 03/22/25 19:13 RBC 4.88 M/uL (4.70-6.10) 03/22/25 19:13 Hgb 15.8 g/dl (14.0-18.0) 03/22/25 19:13 Hct 44.6 % (42.0-52.0) 03/22/25 19:13 MCV 91.4 fL (80.0-100.0) 03/22/25 19:13 MCH 32.4 pg (25.0-34.0) 03/22/25 19:13 MCHC 35.4 g/dL (32.0-36.0) 03/22/25 19:13 RDW Std Deviation 42.7 fL (36.4-46.3) 03/22/25 19:13 RDW Coeff of Michael 12.8 % (11.5-14.5) 03/22/25 19:13 Plt Count 293 K/uL (130-400) 03/22/25 19:13 MPV 10.3 fL (9.4-12.4) 03/22/25 19:13 Immature Gran % (Auto) 0.5 % 03/22/25 19:13 Neut % (Auto) 68.9 % 03/22/25 19:13 Lymph % (Auto) 20.6 % 03/22/25 19:13 [place] % (Auto) 8.3 % 03/22/25 19:13 Eos % (Auto) 1.4 % 03/22/25 19:13 Baso % (Auto) 0.3 % 03/22/25 19:13 Neut # (Auto) 4.05 K/uL (1.40-6.50) 03/22/25 19:13 Lymph # (Auto) 1.21 K/uL (1.20-3.40) 03/22/25 19:13 [place] # (Auto) 0.49 K/uL (0.11-0.59) 03/22/25 19:13 Eos # (Auto) 0.08 K/uL (0.00-0.50) 03/22/25 19:13 Baso # (Auto) 0.02 K/uL (0.00-0.20) 03/22/25 19:13 Immature Gran # (Auto) 0.03 K/uL (0.01-0.20) 03/22/25 19:13 PT 10.3 Seconds (9.0-12.0) 03/22/25 20:16 INR 0.9 (0.9-1.1) 03/22/25 20:16 Sodium 137 mmol/L (136-145) 03/22/25 19:13 Potassium 4.2 mmol/L (3.5-5.1) 03/22/25 19:56 Chloride 105 mmol/L (98-107) 03/22/25 19:13 Carbon Dioxide 26 mmol/L (21-32) 03/22/25 19:13 Anion Gap 6 (3-11) 03/22/25 19:13 BUN 14 mg/dl (6-23) 03/22/25 19:13 Creatinine 1.17 mg/dl (0.6-1.4) 03/22/25 19:13 Est Cr Clr Drug Dosing 58.9 ml/min 03/22/25 19:13 eGFR 65.82 03/22/25 19:13 BUN/Creatinine Ratio 12.0 (10-20) 03/22/25 19:13 Glucose 93 mg/dl (70-99(Fasting)) 03/22/25 19:13 Calcium 9.2 mg/dl (8.6-10.3) 03/22/25 19:13 Magnesium 2.0 mg/dl (1.7-2.4) 03/22/25 19:13 Total Bilirubin 0.4 mg/dl (0.2-1.0) 03/22/25 19:13 AST 20 U/L (13-39) 03/22/25 19:56 ALT 17 U/L (7-52) 03/22/25 19:13 Alkaline Phosphatase 65 U/L (34-104) 03/22/25 19:13 Troponin I High Sens 41.4 pg/ml (0-20) H 03/22/25 21:04 Total Protein 7.9 gm/dl (6.0-8.3) 03/22/25 19:13 Albumin 4.3 gm/dl (3.4-5.0) 03/22/25 19:13 Globulin 3.6 gm/dl (2.5-4.0) 03/22/25 19:13 Albumin/Globulin Ratio 1.2 (0.9-2) 03/22/25 19:13 Procalcitonin < 0.02 ng/ml (0-0.5) 03/22/25 19:13 TSH 1.399 uIu/ml (0.300-4.500) 03/22/25 19:13 Urine Color Yellow 03/22/25 20:02 Urine Appearance Clear (Clear) 03/22/25 20:02 Urine pH 7.0 (4.5-7.5) 03/22/25 20:02 Ur Specific [place] 1.009 (1.000-1.030) 03/22/25 20:02 Urine Protein Negative (Negative) 03/22/25 20:02 Urine Glucose (UA) Negative (Negative) 03/22/25 20:02 Urine Ketones Negative (Negative) 03/22/25 20:02 Urine Blood Negative (Negative) 03/22/25 20:02 Urine Nitrite Negative (Negative) 03/22/25 20:02 Urine Bilirubin Negative (Negative) 03/22/25 20:02 Urine Urobilinogen Negative (Negative) 03/22/25 20:02 Ur Leukocyte Esterase Negative (Negative) 03/22/25 20:02 Urine Comment 03/22/25 20:02 Anaplasma Smear See Comment 03/22/25 19:13 Babesia Smear See Comment 03/22/25 19:13 Lyme Disease Screen Negative (Negative) 03/22/25 19:13 SARS-CoV-2 (PCR) NEGATIVE (Negative) 03/22/25 20:28 Influenza Type A (PCR) Negative (Neg) 03/22/25 20:28 Influenza Type B (PCR) Negative (Neg) 03/22/25 20:28 RSV (RT-PCR) Negative (Neg) 03/22/25 20:28 Impressions Chest X-Ray 03/22/25 19:26 Single frontal view of the chest No comparison Impression No acute pulmonary pathology Electronically signed by Ravi Louis 03-22-2025 9:[address] 03/22/25 19:27 EXAM: CT head/brain wo con CLINICAL HISTORY: ams TECHNIQUE: Axial non-contrast CT scan of the brain was performed from the skull base to the high parietal region. One of the following dose reduction techniques were utilized for this exam: Automated exposure control, adjustment of the mA and/or kV according to patient size, use of iterative reconstruction. DLP: 547.7 mGy.cm. COMPARISON: none FINDINGS: Brain Parenchyma: Normal attenuation of the cerebral hemispheres, cerebellum, and brainstem. No evidence of acute infarct, hemorrhage, or mass effect. No abnormal areas of hypo- or hyperattenuation. Mild deep periventricular and subcortical white matter hypodensity suggesting mild chronic small vessel ischemia Ventricular System: Ventricles are prominent No evidence of hydrocephalus or ventricular enlargement. Subarachnoid Spaces: Prominent sulci and cisterns. No evidence of subarachnoid hemorrhage or extra-axial fluid collections. Cerebellum and Brainstem: No masses, lesions, or areas of abnormal density. Orbits: Normal appearance of the globes, optic nerves, and extraocular muscles. No evidence of orbital masses or abnormal density. Sinuses: Clear paranasal sinuses. No evidence of sinusitis or mucosal thickening. Mastoid Air Cells: Clear mastoid air cells. No evidence of mastoiditis. Skull: Normal skull morphology. IMPRESSION: 1. No acute hemorrhagic or ischemic insults 2. Age-matched cerebral involutional changes with mild chronic small vessel ischemia Electronically signed by Chuy Bolden 03-22-2025 9:23 PM Head CTA 03/22/25 20:08 CT angiogram of the head with contrast Technique: Postcontrast axial images of the head. Coronal and sagittal reformatted images made available for review No comparison Findings: No stenosis, dissection, aneurysm, or occlusion. 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 Impression Unremarkable exam. Electronically signed by Ravi Louis 03-22-2025 9:53 PM Neck CTA 03/22/25 20:08 CT angiogram of the neck with contrast Technique: Postcontrast axial images of the neck. Coronal and sagittal reformatted images made available for review . 2D reformatted images made available for review. No comparison Findings: No stenosis, dissection, aneurysm, occlusion identified on this exam. Mild apical predominant bullous emphysematous changes. Bone windows demonstrate no focal abnormality. Multilevel degenerative changes of the cervical spine. Impression: Unremarkable exam. Electronically signed by Ravi Louis 03-22-2025 9:53 PM Chest CTA 03/22/25 20:19 CT angiogram of the chest Technique: Postcontrast axial images of the chest. Coronal and sagittal reformatted images made available for review. 2D MIP images made available for review No comparison Findings: Exam limited secondary to patient respiratory motion. Twice this limitation no large central pulmonary embolus is present on this exam. Linear atelectasis within the left lower lobe. No lobar consolidations or effusions. Heart size and pulmonary vascularity are unremarkable. Limited evaluation of upper abdomen demonstrates no gross abnormality. Bone windows demonstrate no focal abnormality. Impression: Limited exam. No large central pulmonary embolus. Electronically signed by Ravi Louis 03-22-2025 9:44 PM Diagnostic Findings EKG as per my interpretation :Rate 75, NSR, normal axis, no ischemia
[2025-03-22] MEDS: ASPIRIN 81 MG CHEW PO STA (22:49)
[2025-03-22] MEDS ORDERED: PHARMACIST DISCHARGE MED REC CONSULT PRN (22:51)
[2025-03-22] MEDS ORDERED: PROMETHAZINE 6.25 MG/50.25 ML BAG IV PRN (22:54)
[2025-03-22] MEDS ORDERED: ACETAMINOPHEN 500 MG TAB PO PRN (22:54)
[2025-03-22] MEDS ORDERED: GLUCAGON FOR INJ 1 MG VIAL SQ PRN (23:37)
[2025-03-22] MEDS ORDERED: GLUCOSE 10 TAB/TUBE PO PRN (23:37)
[2025-03-22] MEDS ORDERED: GLUCOSE 40% GEL 15 GM TUBE PO PRN (23:37)
[2025-03-22] MEDS ORDERED: CARBOHYDRATES FOR HYPOGLYCEMIA PO PRN (23:37)
[2025-03-22] MEDS ORDERED: DEXTROSE 50% 50 ML SYRINGE IV PRN (23:37)
[2025-03-22] MEDS: INSULIN ASPART PER UNIT CHARGE SC SCH (23:56)
--- NOTE | 2025-03-23 01:14 | Magnetic Resonance Report ---
EXAM: MR brain wo con CLINICAL HISTORY: imbalance TECHNIQUE: Multisequential and multiplanar images of the brain were submitted for review without contrast. COMPARISON: None FINDINGS: A few small - tiny nodular foci of DWI hyperintensity with corresponding ADC hypointensity (suggestive of diffusion restriction), are seen in the cortical - subcortical aspect of right fronto-parietal lobes, likely representing small focal acute infarcts. The brain otherwise shows normal morphology, signal intensity, and volume for age. No intracranial hemorrhage, mass effect, midline shift, extra-axial collection, or hydrocephalus is identified. Ventricles, sulci, and basal cisterns are symmetric and normal in size and configuration. Midline structures including the pituitary gland, corpus callosum, pineal region, and brainstem are unremarkable. The craniovertebral junction is within normal limits. No calvarial abnormalities are identified. The paranasal sinuses and mastoid air cells are clear. Orbital structures are unremarkable. Appropriate flow voids are present in the visualized intracranial vessels. IMPRESSION: 1. Few small - tiny nodular foci of DWI hyperintensity with corresponding ADC hypointensity (suggestive of diffusion restriction), seen in the cortical - subcortical aspect of right fronto-parietal lobes, likely representing small focal acute lacunar infarcts. Electronically signed by Edvin Crooks 03-23-2025 01:12 AM
[2025-03-23 03:48] VITALS: RESP 20
[2025-03-23 06:23] LABS: Hematocrit (blood only) 44.2 % (42.0-52.0); Hemoglobin 14.9 g/dl (14.0-18.0); Immature Granulocytes # (auto) 0.03 K/uL (0.01-0.20); Immature Granulocytes % (auto) 0.5 %; Mean Corpuscular Hemoglobin 30.7 pg (25.0-34.0); Mean Corpuscular Volume 91.1 fL (80.0-100.0); Platelet Count 306 K/uL (130-400); RDW Standard Deviation 43.2 fL (36.4-46.3); Red Blood Count 4.85 M/uL (4.70-6.10); White Blood Count 5.94 K/ul (4.8-10.8)
[2025-03-23 06:42] LABS: Anion Gap 8.0 (3-11); Blood Urea Nitrogen 12.0 mg/dl (6-23); Calcium 9.2 mg/dl (8.6-10.3); Carbon Dioxide 28.0 mmol/L (21-32); Chloride 104.0 mmol/L (98-107); Cholesterol 177.0 mg/dl (0-200); Creatinine Clr Calc Pharmacy 63.4 ml/min; Glucose 94.0 mg/dl (70-99(Fasting)); HDL Cholesterol 52.0 mg/dl; Potassium 4.1 mmol/L (3.5-5.1); Sodium 140.0 mmol/L (136-145); Triglycerides 110.0 mg/dl (0-150)
[2025-03-23 07:38] LABS: Hemoglobin A1C 6.5 % (4.5-5.6)
[2025-03-23 08:21] VITALS: TEMP 97.7; O2SAT 90
--- NOTE | 2025-03-23 08:27 | Electrocardiogram Report ---
Test Reason : Blood Pressure : */* mmHG Vent. Rate : 73 BPM Atrial Rate : 73 BPM P-R Int : 140 ms QRS Dur : 94 ms QT Int : 402 ms P-R-T Axes : 78 69 35 degrees QTcB Int : 442 ms Normal sinus rhythm Normal ECG When compared with ECG of 04-May-2019 22:13, No significant change was found Confirmed by Rossy Anna (Fito) on 03/23/2025 8:27:17 AM Referred By: Confirmed By: Rossy Anna
[2025-03-23] MEDS: ROSUVASTATIN CALCIUM 5 MG TAB PO SCH (08:57)
[2025-03-23] MEDS: CALCIUM 600MG + VIT D 400 IU TAB PO SCH (08:57)
[2025-03-23] MEDS: ASPIRIN 81 MG ECTAB PO SCH (08:57)
[2025-03-23] MEDS: ADVANCED PROBIOTIC 625 MG CAPSULE PO SCH (08:57)
[2025-03-23] MEDS: ENOXAPARIN INJ 40 MG/0.4 ML SYR SQ SCH (08:59)
[2025-03-23] MEDS ORDERED: ENOXAPARIN INJ 40 MG/0.4 ML SYR SQ SCH (09:00)
[2025-03-23 12:23] VITALS: BP 165/85; PULSE 77
--- NOTE | 2025-03-23 12:24 | Neurology Consultation ---
Date of Consultation March 23, 2025 Assessment & Plan (1) Stroke with cerebral ischemia: Scotty Olsen is a 74 yo M presenting with multifocal R MCA territory stroke without large vessel disease on CTA. This is not consistent with small vessel disease as commented in the MRI report as there are two distinct lesions not in a small vessel territory. This is more consistent with cardioembolism. Therefore recommend completing the cardiac eval, echo pending, cardiac event monitor as an outpatient. May continue dapt for 21 days, but ultimately will need daily 81mg aspirin. LDL target of 70, will likely need to increase to crestor 20mg daily. -- DAPT for 21 days, then aspirin 81mg daily -- Echo pending -- Cardiac event monitor as an outpatient -- Likely increase to crestor 20mg daily with LDL goal of <70 -- Therapy evals pending -- Neurology follow-up in 4-6 weeks Telehealth Consultation Telehealth Information Telehealth Information: I performed this visit using a real-time telehealth connection between my location and the patients location ([facility]). After connecting through interactive tele-video, patient was identified by name and date of and/or wristband check.Patient (or authorized healthcare product sales representative) was informed that this was a telemedicine visit and it was being conducted confidentially over secure lines. My office door was closed and no one else was present in the room with me.Patient (or authorized healthcare product sales representative) provided consent to proceed with the visit, expressed an understanding of privacy and security of the telemedicine visit, and gave permission to have a hospital product sales representative in the room in order to assist with the visit and to conduct portions of the visit, as needed. I informed the patient (or authorized healthcare product sales representative) that I reviewed their record and presented the opportunity for them to ask any questions regarding the visit today. The patient agreed to participate. History of Present Illness Reason for Consultation: Confusion, gait instability Requesting Physician: Dr. Powell Attending Physician: Khadar Powell DO History of Present Illness Scotty Olsen is a 74 yo M presenting with an episode of confusion and difficulty ambulating. The patient reports that he lives at home and takes care of his . Yesterday he felt unwell and was off balance with a mild headache. He feels back to baseline currently. Has not taken aspirin at home in a year because of easy bruising. No history of stroke in the past. Reports mild L sided chest pain he believes is indigestion/GERD. Allergies Allergy/AdvReac Type Severity Reaction Status Date / Time RANDALL Inhibitors Allergy Intermediate ANGIOEDEMA Verified 05/12/21 14:30 gabapentin Allergy Intermediate off balance Verified 05/12/21 14:30 sertraline Allergy Intermediate Abdominal Verified 05/12/21 14:30 Pain venlafaxine [From Effexor] Allergy Intermediate Abdominal Verified 05/12/21 14:30 Pain, chest pain ezetimibe AdvReac Mild intolerance Verified 05/12/21 14:30 Ebvbaye-QAW-KpW Reductase AdvReac Mild intolerance Verified 03/22/25 22:57 Inhibitor Home Medications Medication Instructions Recorded Confirmed Type magnesium 250 mg tablet 250 mg PO QPM 05/04/19 03/22/25 History mirtazapine 15 mg tablet (Remeron) 15 mg PO HS 09/22/19 03/22/25 History lorazepam 1 mg tablet 1 mg PO BID PRN Anxiety 02/02/20 03/22/25 History methimazole 5 mg tablet 5 mg PO DAILY #90 tabs 08/16/20 03/22/25 Rx aspirin 81 mg tablet,delayed 81 mg PO Q OTHER DAY 12/14/20 03/22/25 History release (Adult Aspirin Regimen) pantoprazole 40 mg tablet,delayed 40 mg PO QAM #90 tabs 01/31/21 03/22/25 Rx release Lactobacillus 1 cap PO DAILY 03/22/25 03/22/25 History acidophilus-Bifidobac.animalis 2.5 billion cell capsule (Daily Probiotic) albuterol sulfate 90 mcg/actuation 2 puff inhalation Q6H PRN Wheezing 03/22/25 03/22/25 History aerosol inhaler amlodipine 10 mg tablet 10 mg PO QAM 03/22/25 03/22/25 History calcium 500 mg (as citrate)-vit D3 1 tab PO DAILY 03/22/25 03/22/25 History 10 mcg (400 unit) chewable tablet cyanocobalamin (vitamin B-12) 500 500 mcg PO Q OTHER DAY 03/22/25 03/22/25 History mcg tablet (Vitamin B-12) rosuvastatin 5 mg tablet 5 mg PO 2XWK 03/22/25 03/22/25 History Patient History Medical History Anxiety Hypertension Hyperthyroidism Vertigo (2013) Surgical History History of colonoscopy (01/07/20) History of esophagogastroduodenoscopy (EGD) (01/07/20) History of left cataract surgery History of right cataract surgery Family History Mother Pancreatic cancer Father Alzheimer disease Sister Depression Unknown Bone cancer Brother Coronary heart disease Melanoma Grandfather (Maternal) Myocardial infarction Other Family history non-contributory Denies family history of Ovarian cancer Prostate cancer Breast cancer Colorectal cancer Social History Smoking Status: Former smoker Tobacco Type: Cigarettes Age Started Using Tobacco: 14; Age Quit Using Tobacco: 68; packs per day: 1.5; Cigarettes Per Day: 10-30; Second Hand Exposure: No; Do You Dip or Chew Tobacco: No; Hx Alcohol Use: No Hx Substance Use: No Preferred Language: Vietnamese Communication Ability: Effective Visual Impairment: No Limitations Hearing Ability: Normal Medical Device Sales Representative Required: No Beliefs That Will Affect Care: None marital status: Current Living Situation: Spouse current occupational status: retired current occupation: worked as school bus attendant for [email or web address] Other Information That Helps Us Care for You: No Feels Safe at Home: Yes Safety Concerns: Feels Safe At This Time Childhood Exposure to Second-Hand Smoke: No Diet: regular Dental Care, Regularly: No Physical Activity Frequency: Daily Seatbelt Use: always Sunscreen Use: No Assistive Devices: Denture - Upper and Glasses Review of Systems +confusion Physical Exam Neurological Examination: Mental Status: Awake and alert. Oriented to person, place, and time. Fluent. Comprehension intact. Affect appropriate. Cranial Nerves: II: Reads NIHSS cards, pupils 3/3 to 2/2, mckeon grossly intact. III/IV/: Versions intact without nystagmus, no gaze preference. V: Facial sensation symmetric to light touch VII: Facial expression symmetric VIII: Hearing intact to voice IX/X: Palate elevates symmetrically XI: Shoulder shrug symmetric XII: Tongue midline Motor: Strength was symmetric and antigravity throughout. Pronator drift was absent. There were no abnormal movements. Coordination: Finger to nose and heel to stewart were intact. Reflexes: Unable to assess over telemedicine Results & Data Vital Signs (Past 12 Hours) Vital Signs Temp Pulse Pulse Resp BP Pulse Ox O2 Del Method 03/23/25 08:20 36.5 C 64 20 144/88 H 90 Room Air 03/23/25 07:29 68 03/23/25 03:47 36.4 C L 66 20 167/93 H 92 Room Air Laboratory Results Abnormal lab results 03/22/25 03/22/25 03/23/25 Range/Units 19:13 21:04 05:40 [place] # (Auto) 0.62 H (0.11-0.59) K/uL Hemoglobin A1c 6.5 H (4.5-5.6) % Troponin I High Sens 42.2 H 41.4 H (0-20) pg/ml Diagnostic Findings Chest X-Ray 03/22/25 19:26 Single frontal view of the chest No comparison Impression No acute pulmonary pathology Electronically signed by Ravi Louis 03-22-2025 9:[address] 03/22/25 19:27 EXAM: CT head/brain wo con CLINICAL HISTORY: ams TECHNIQUE: Axial non-contrast CT scan of the brain was performed from the skull base to the high parietal region. One of the following dose reduction techniques were utilized for this exam: Automated exposure control, adjustment of the mA and/or kV according to patient size, use of iterative reconstruction. DLP: 547.7 mGy.cm. COMPARISON: none FINDINGS: Brain Parenchyma: Normal attenuation of the cerebral hemispheres, cerebellum, and brainstem. No evidence of acute infarct, hemorrhage, or mass effect. No abnormal areas of hypo- or hyperattenuation. Mild deep periventricular and subcortical white matter hypodensity suggesting mild chronic small vessel ischemia Ventricular System: Ventricles are prominent No evidence of hydrocephalus or ventricular enlargement. Subarachnoid Spaces: Prominent sulci and cisterns. No evidence of subarachnoid hemorrhage or extra-axial fluid collections. Cerebellum and Brainstem: No masses, lesions, or areas of abnormal density. Orbits: Normal appearance of the globes, optic nerves, and extraocular muscles. No evidence of orbital masses or abnormal density. Sinuses: Clear paranasal sinuses. No evidence of sinusitis or mucosal thickening. Mastoid Air Cells: Clear mastoid air cells. No evidence of mastoiditis. Skull: Normal skull morphology. IMPRESSION: 1. No acute hemorrhagic or ischemic insults 2. Age-matched cerebral involutional changes with mild chronic small vessel ischemia Electronically signed by Chuy Bolden 03-22-2025 9:23 PM Head CTA 03/22/25 20:08 CT angiogram of the head with contrast Technique: Postcontrast axial images of the head. Coronal and sagittal reformatted images made available for review No comparison Findings: No stenosis, dissection, aneurysm, or occlusion. Persistent origin of the right [employer]. Impression Unremarkable exam. Electronically signed by Ravi Louis 03-22-2025 9:53 PM Neck CTA 03/22/25 20:08 CT angiogram of the neck with contrast Technique: Postcontrast axial images of the neck. Coronal and sagittal reformatted images made available for review . 2D reformatted images made available for review. No comparison Findings: No stenosis, dissection, aneurysm, occlusion identified on this exam. Mild apical predominant bullous emphysematous changes. Bone windows demonstrate no focal abnormality. Multilevel degenerative changes of the cervical spine. Impression: Unremarkable exam. Electronically signed by Ravi Louis 03-22-2025 9:53 PM Chest CTA 03/22/25 20:19 CT angiogram of the chest Technique: Postcontrast axial images of the chest. Coronal and sagittal reformatted images made available for review. 2D MIP images made available for review No comparison Findings: Exam limited secondary to patient respiratory motion. Twice this limitation no large central pulmonary embolus is present on this exam. Linear atelectasis within the left lower lobe. No lobar consolidations or effusions. Heart size and pulmonary vascularity are unremarkable. Limited evaluation of upper abdomen demonstrates no gross abnormality. Bone windows demonstrate no focal abnormality. Impression: Limited exam. No large central pulmonary embolus. Electronically signed by Ravi Louis 03-22-2025 9:44 PM Brain MRI 03/23/25 00:02 EXAM: MR brain wo con CLINICAL HISTORY: imbalance TECHNIQUE: Multisequential and multiplanar images of the brain were submitted for review without contrast. COMPARISON: None FINDINGS: A few small - tiny nodular foci of DWI hyperintensity with corresponding ADC hypointensity (suggestive of diffusion restriction), are seen in the cortical - subcortical aspect of right fronto-parietal lobes, likely representing small focal acute infarcts. The brain otherwise shows normal morphology, signal intensity, and volume for age. No intracranial hemorrhage, mass effect, midline shift, extra-axial collection, or hydrocephalus is identified. Ventricles, sulci, and basal cisterns are symmetric and normal in size and configuration. Midline structures including the pituitary gland, corpus callosum, pineal region, and brainstem are unremarkable. The craniovertebral junction is within normal limits. No calvarial abnormalities are identified. The paranasal sinuses and mastoid air cells are clear. Orbital structures are unremarkable. Appropriate flow voids are present in the visualized intracranial vessels. IMPRESSION: 1. Few small - tiny nodular foci of DWI hyperintensity with corresponding ADC hypointensity (suggestive of diffusion restriction), seen in the cortical - subcortical aspect of right fronto-parietal lobes, likely representing small focal acute lacunar infarcts. Electronically signed by Edvin Crooks 03-23-2025 01:12 AM
[2025-03-23] MEDS: CLOPIDOGREL BISULFATE 300 MG TAB PO STA (13:10)
[2025-03-23] MEDS ORDERED: STROKE PATIENT DISCHARGE STA (15:14)
--- NOTE | 2025-03-23 15:20 | Discharge Summary ---
Discharge Summary Date of Service March 23, 2025 Principal Dx & Hospital Course #1 = Principal Diagnosis (1) Acute lacunar stroke: (2) Hypertension, uncontrolled: (3) Acute metabolic encephalopathy: (4) Hyperlipidemia: (5) Diabetes mellitus type 2 with neurological manifestations: Plan Patient 74-year-old gentleman with known history of hypertension and prediabetes and dyslipidemia presented to the emergency room with come plaints of some confusion, poor coordination, poor balance. In the emergency room initial imaging was unremarkable. But due to the symptoms referred for further evaluation. Patient was admitted to the hospital. He was placed on a monitored unit. There is no significant arrhythmias. MRI of the brain did confirm lacunar infarcts. Patient was started back on his aspirin which she had stopped some time ago he. Once MRI revealed positive stroke was loaded with Plavix. He was seen by neurology who recommended secondary stroke prevention. Due to the fact that he does appear that he had several small lacunar infarcts high the suspicious for possible occult arrhythmia. Will attempt to set up outpatient ZIO monitoring, or this will be coordinated through his PCP. Will continue dual antiplatelet therapy for 21 days then can continue on single agent aspirin 81 mg daily. Patient is aware that he had "prediabetes" does admit he is not the most strict with his diet. Hemoglobin A1c is indicative of now with diabetes. At this time I encouraged diet control and discussion with his PCP about starting medications to control his diabetes since this is quite important and secondary stroke risk reduction. Patient was hypertensive while here in the hospital. Will be started on low-dose Toprol XL for improved blood pressure control. This may need to be titrated upwards as an outpatient or additional agents added for better blood pressure control. This was reviewed with the patient to be discharged home to follow-up with his outpatient provider. Notes For Next Care Provider Recommend outpatient ZIO monitoring to evaluate for occult arrhythmia/A-fib Consider possible medical treatment in addition to diet control for diabetes Continue to titrate medications for optimal blood pressure control Patient has a history of intolerance of statins. States he is tolerating the low-dose Crestor twice a week. Optimal therapy would be high-dose statin in the setting of acute stroke, however due to his previous intolerance we will attempt to increase him to the Crestor 5 mg daily and see how he tolerates. If tolerates would consider increasing dosage even further. Medication Changes From Visit Crestor changed to daily dosing Aspirin and Plavix for 21 days then aspirin 81 mg daily indefinitely for stroke Toprol XL for blood pressure control Admission HPI Per Admitting Provider History obtained from patient, family, and records. Medical history significant for hypertension, hyperlipidemia, DM2 diet- controlled, GERD, hyperthyroidism, anxiety/mood disorder, past tobacco abuse. Patient noted to be off balance the last few days. Patient somewhat confused. Complaining of headache symptoms. Compliant with home meds. Denies chest pain, SOB. No new home medications. SBP 170s upon arrival at the ER. Lowest O2 sats of 80s documented at the ER. Medical History as above Surgical History : Cataract surgeries Family History : Dementia, DM, melanoma, pancreatic cancer, RA Personal/Social history : Past tobacco abuse, occasional EtOH intake, lives with Admission Exam Per Admitting Provider See H&P Discharge Exam Constitutional: Alert HEENT: Mucous membranes moist. Lungs: Clear to auscultation, decreased, no wheezes rales or rhonchi CV: S1-S2, regular Abdomen: Soft, nontender, nondistended Extremities: No significant edema Neuro: NIH stroke score equals 0 Psych: Cooperative, normal mood Updated Medication List Medication Instructions Recorded Confirmed Type magnesium 250 mg tablet 250 mg PO QPM 05/04/19 03/22/25 History mirtazapine 15 mg tablet (Remeron) 15 mg PO HS 09/22/19 03/22/25 History lorazepam 1 mg tablet 1 mg PO BID PRN Anxiety 02/02/20 03/22/25 History methimazole 5 mg tablet 5 mg PO DAILY #90 tabs 08/16/20 03/22/25 Rx pantoprazole 40 mg tablet,delayed 40 mg PO QAM #90 tabs 01/31/21 03/22/25 Rx release Lactobacillus 1 cap PO DAILY 03/22/25 03/22/25 History acidophilus-Bifidobac.animalis 2.5 billion cell capsule (Daily Probiotic) albuterol sulfate 90 mcg/actuation 2 puff inhalation Q6H PRN Wheezing 03/22/25 03/22/25 History aerosol inhaler amlodipine 10 mg tablet 10 mg PO QAM 03/22/25 03/22/25 History calcium 500 mg (as citrate)-vit D3 1 tab PO DAILY 03/22/25 03/22/25 History 10 mcg (400 unit) chewable tablet cyanocobalamin (vitamin B-12) 500 500 mcg PO Q OTHER DAY 03/22/25 03/22/25 History mcg tablet (Vitamin B-12) aspirin 81 mg tablet,delayed 81 mg PO DAILY #360 tabs 03/23/25 Rx release (Adult Aspirin Regimen) clopidogrel 75 mg tablet 75 mg PO QAM #21 tabs 03/23/25 Rx metoprolol succinate 25 mg 12.5 mg (1/2 x 25 mg) PO DAILY #30 03/23/25 Rx tablet,extended release 24 hr tabs (Toprol XL) rosuvastatin 5 mg tablet 5 mg PO DAILY #30 tabs 03/23/25 Rx Hospital Stay Data Consultations 03/22/25 22:05 ED Decision to Admit Stat 03/23/25 05:52 Consult Neurology Routine Diagnostic Imagining Performed 03/22/25 19:27 CT head/brain wo con Stat 03/22/25 20:08 CT angio head w con Stat CT angio neck with con Stat 03/22/25 20:19 CT angio chest PE protocol Stat 03/23/25 00:02 MR brain wo con Stat Reviewed imaging, laboratory and diagnostic studies. Pertinent findings as below. CBC within normal ranges Electrolytes within normal ranges Creatinine 1.02 Hemoglobin A1c 6.5% Triglycerides 110 Cholesterol 177 LDL 103 HDL 52 TSH 1.39 Lyme screen negative Influenza, COVID, RSV negative MRI of the brain consistent with small tiny foci of acute infarct in the cortical/subcortical aspect of the right frontal parietal lobes CTA of the head and neck no large vessel occlusion Echocardiogram revealed ejection fraction 60 to 65% with normal LV function. No evidence of intra arterial septum defect Pending Results Patient Have Any Pending Studies at Discharge: No Discharge Instructions Given to Patient (Per Discharging Provider) Follow-up with your PCP the results of your heart monitor Continue work with your PCP to control your blood pressure Continue tight control of your diabetes Total Time Total Time Spent Total Time Spent (In Minutes): 40
[2025-03-24] MEDS ORDERED: CLOPIDOGREL BISULFATE 75 MG TAB PO SCH (09:00)
--- NOTE | 2025-03-25 10:42 | Pharmacy Report ---
Pharmacist Stroke Counseling - Date of Service March 25, 2025 - Scope: Pharmacy has been consulted to provide medication discharge counseling for this patient admitted with [ischemic stroke] [hemorrhagic stroke] [transient ischemic attack] as per the Pharmacist Discharge Counseling for Stroke Patients Daniel col. - Medications on Discharge: Home Medications Medication Instructions Recorded Confirmed magnesium 250 mg tablet 250 mg PO QPM 05/04/19 03/22/25 mirtazapine 15 mg tablet (Remeron) 15 mg PO HS 09/22/19 03/22/25 lorazepam 1 mg tablet 1 mg PO BID PRN Anxiety 02/02/20 03/22/25 Lactobacillus 1 cap PO DAILY 03/22/25 03/22/25 acidophilus-Bifidobac.animalis 2.5 billion cell capsule (Daily Probiotic) albuterol sulfate 90 mcg/actuation 2 puff inhalation Q6H PRN Wheezing 03/22/25 03/22/25 aerosol inhaler amlodipine 10 mg tablet 10 mg PO QAM 03/22/25 03/22/25 calcium 500 mg (as citrate)-vit D3 1 tab PO DAILY 03/22/25 03/22/25 10 mcg (400 unit) chewable tablet cyanocobalamin (vitamin B-12) 500 500 mcg PO Q OTHER DAY 03/22/25 03/22/25 mcg tablet (Vitamin B-12) New Rx's Medication Instructions Recorded methimazole 5 mg tablet 5 mg PO DAILY #90 tabs 08/16/20 pantoprazole 40 mg tablet,delayed 40 mg PO QAM #90 tabs 01/31/21 release aspirin 81 mg tablet,delayed 81 mg PO DAILY #360 tabs 03/23/25 release (Adult Aspirin Regimen) clopidogrel 75 mg tablet 75 mg PO QAM #21 tabs 03/23/25 metoprolol succinate 25 mg 12.5 mg (1/2 x 25 mg) PO DAILY #30 03/23/25 tablet,extended release 24 hr tabs (Toprol XL) rosuvastatin 5 mg tablet 5 mg PO DAILY #30 tabs 03/23/25 - Action: The above medications, specifically ones for stroke treatment/prophylaxis, have been reviewed in detail with the patient and/or patient financial service representative(s) prior to discharge. This includes indication, common adverse reactions, drug interactions, and medication administration. Medication counseling has been employed using the teach-back method to ensure understanding. - Outcome: The patient and/or patient financial service representative(s) have demonstrated understanding of the medications. Additional comments: Spoke with Scotty this AM. He has been to the pharmacy and has begun taking his medications. He is aware of the medication changes from discharge. Reviewed indications for medications and side effects. He is hesitant about increasing the Crestor but is willing to try, he has taken for two nights and has not noticed any symptoms. He has a PCP appointment tomorrow and will discuss any other concerns. HbA1c 6.5% during admission, Dr. Powell deferred management to outpatient provider. All questions answered to the best of my ability. Thank you for allowing pharmacy to be involved in the care of this patient. Please call [phone] with any additional questions
== END 2025-03-23 17:24 | disposition home or self-care (01) | DRG 64 ==
LOC: ED 19:00 → 2N 22:19